=== PATIENT | female | born 1985 | race Caucasian/White ===

== ENCOUNTER 2018-08-27 04:34 | Emergency (ER) | payer MEDICAID, OTHER ==
[2018-08-27] MEDS ORDERED: LORazepam 1 MG TAB PO STA ×3 (05:02→14:28)
--- NOTE | 2018-08-27 05:09 | ED ---
Psych HPI - General Source: police, EMS <Brittani John - Last Filed: 08/27/18 07:21> <Palmer Boone - Last Filed: 08/27/18 15:14> - General Chief Complaint: Psychiatric Symptoms Stated Complaint: Mental Health Time Seen by Provider: 08/27/18 04:39 - History of Present Illness Initial Comments: Kitty is a 33-year-old female is brought to the ED by police evaluation of manic behavior. Police report that Kitty called them and upon their arrival he was pacing around hyperventilating stating that she cut it take this. He reports she would then become calm and cooperative but again become upset. Upon my evaluation the patient repeatedly states I just can't do this. She is agitated rocking back and forth in the bed and hyperventilating. She states she has not been compliant with any of her home medications. (Brittani John) - Related Data Home Medications Medication Instructions Recorded Confirmed Dextroamphetamine/Amphetamine 20 mg PO DAILY 08/27/18 08/27/18 [Adderall] Escitalopram [Lexapro] 20 mg PO DAILY 08/27/18 08/27/18 QUEtiapine [SEROquel] 100 mg PO HS 08/27/18 08/27/18 Zolpidem [Ambien] 10 mg PO HS PRN 08/27/18 08/27/18 clonazePAM [KlonoPIN] 0.5 - 1 mg PO QID PRN 08/27/18 08/27/18 levETIRAcetam [Keppra] 250 mg PO DAILY 08/27/18 08/27/18 levETIRAcetam [Keppra] 500 mg PO HS 08/27/18 08/27/18 Allergies Allergy/AdvReac Type Severity Reaction Status Date / Time No Known Allergies Allergy Verified 08/27/18 04:54 Review of Systems ROS Other: All systems not noted in ROS Statement are negative. Limitations: ROS unobtainable due to patients medical condition <Brittani John - Last Filed: 08/27/18 07:21> ROS Other: All systems not noted in ROS Statement are negative. <Palmer Boone - Last Filed: 08/27/18 15:14> ROS Statement: Those systems with pertinent positive or pertinent negative responses have been documented in the HPI. Past Medical History Past Medical History: Seizure Disorder Additional Past Medical History / Comment(s): anxiety last seizure 4 years ago osteomyelitis right knee as a child History of Any Multi-Drug Resistant Organisms: None Reported Past Surgical History: No Surgical Hx Reported Past Anesthesia/Blood Transfusion Reactions: No Reported Reaction Past Psychological History: Anxiety, Depression Smoking Status: Never smoker Past Alcohol Use History: None Reported Past Drug Use History: None Reported, Prescription Drug Abuse - Past Family History Father Additional Family Medical History / Comment(s): Father is in his 40s with no major medical problems. Mother Family Medical History: Hypertension Additional Family Medical History / Comment(s): Mother is in her 40s with history of ALLERGIES, anxiety, hypertension Sister(s) Additional Family Medical History / Comment(s): She has one sister with no major medical problems. She does not have any brothers. She does not have any children. <Brittani John - Last Filed: 08/27/18 07:21> General Exam Limitations: no limitations <Brittani John - Last Filed: 08/27/18 07:21> <Palmer Boone - Last Filed: 08/27/18 15:14> - General Exam Comments Initial Comments: Physical Exam GENERAL: Unkempt appearance, agitated, rocking around on the bed, hyperventilating. HENT: Normocephalic, Atraumatic. EYES: Pupils dilated 5 mm bilaterally PULMONARY: Tachypneic, no wheezing CARDIOVASCULAR: There is a regular rate and rhythm without any murmurs gallops or rubs. ABDOMEN: Soft and nontender with normal bowel sounds. SKIN: Skin is clear with no lesions or rashes and otherwise unremarkable. : Deferred NEUROLOGIC: Alert and oriented to person, place and location, uncertain of date, agitated MUSCULOSKELETAL: Normal extremities with adequate strength and full range of motion. No lower extremity swelling or edema. No calf tenderness. PSYCHIATRIC: Agitated, anxious, not able to communicate effectively appears manic Limitations: no limitations (Brittani John) Course <Brittani John - Last Filed: 08/27/18 07:21> <Palmer Boone - Last Filed: 08/27/18 15:14> Vital Signs 08/27/18 04:44 Temperature 98.5 F Pulse Rate 99 Respiratory 20 Rate Blood Pressure 137/97 O2 Sat by Pulse 95 Oximetry - Reevaluation(s) Reevaluation #1: 08/27/18 15:14 A patient was determined to be sober was evaluated by psychiatric service he currently is not a risk to herself or anyone else he'll be discharged for outpatient referral. (Palmer Boone) Medical Decision Making - Lab Data Result diagrams: 08/27/18 05:12 08/27/18 05:12 <Brittani John - Last Filed: 08/27/18 07:21> - Lab Data Result diagrams: 08/27/18 05:12 08/27/18 05:12 <Palmer Boone - Last Filed: 08/27/18 15:14> - Medical Decision Making She was seen and evaluated upon arrival. Patient presenting with agitation and kristin history of psychiatric illness currently noncompliant with her medications Labs were ordered 2mg PO Ativan ordered Labs elevated alcohol level, patient will be sober around 1 PM, patient care is signed out to Dr. Boone who will follow up on EPS recommendations (Brittani John) - Lab Data Lab Results 08/27/18 08/27/18 08/27/18 Range/Units 05:12 05:12 05:47 WBC 6.5 (3.8-10.6) k/uL RBC 5.05 (3.80-5.40) m/uL Hgb 16.5 H (11.4-16.0) gm/dL Hct 47.6 H (34.0-46.0) % MCV 94.4 (80.0-100.0) fL MCH 32.7 (25.0-35.0) pg MCHC 34.7 (31.0-37.0) g/dL RDW 13.1 (11.5-15.5) % Plt Count 249 (150-450) k/uL Neutrophils % 56 % Lymphocytes % 35 % Monocytes % 4 % Eosinophils % 2 % Basophils % 1 % Neutrophils # 3.6 (1.3-7.7) k/uL Lymphocytes # 2.2 (1.0-4.8) k/uL Monocytes # 0.3 (0-1.0) k/uL Eosinophils # 0.1 (0-0.7) k/uL Basophils # 0.0 (0-0.2) k/uL Sodium 144 (137-145) mmol/L Potassium 4.3 (3.5-5.1) mmol/L Chloride 108 H (98-107) mmol/L Carbon Dioxide 23 (22-30) mmol/L Anion Gap 13 mmol/L BUN 10 (7-17) mg/dL Creatinine 0.79 (0.52-1.04) mg/dL Est GFR (CKD-EPI)AfAm >90 (>60 ml/min/1.73 sqM) Est GFR (CKD-EPI)NonAf >90 (>60 ml/min/1.73 sqM) Glucose 109 H (74-99) mg/dL Calcium 10.1 (8.4-10.2) mg/dL Total Bilirubin 0.6 (0.2-1.3) mg/dL AST 36 (14-36) U/L ALT 63 H (9-52) U/L Alkaline Phosphatase 31 L (38-126) U/L Total Protein 8.2 (6.3-8.2) g/dL Albumin 4.9 (3.5-5.0) g/dL Urine Color Light Yellow Urine Appearance Cloudy H (Clear) Urine pH 7.0 (5.0-8.0) Ur Specific [place] 1.009 (1.001-1.035) Urine Protein Negative (Negative) Urine Glucose (UA) Negative (Negative) Urine Ketones Negative (Negative) Urine Blood Negative (Negative) Urine Nitrite Negative (Negative) Urine Bilirubin Negative (Negative) Urine Urobilinogen <2.0 (<2.0) mg/dL Ur Leukocyte Esterase Small H (Negative) Urine RBC 2 (0-5) /hpf Urine WBC 2 (0-5) /hpf Ur Squamous Epith Cells 6 H (0-4) /hpf Urine Bacteria Rare H (None) /hpf Urine Mucus Rare H (None) /hpf Urine HCG, Qual (Not Detectd) Salicylates <1.0 mg/dL Urine Opiates Screen Not Detected (NotDetected) Ur Oxycodone Screen Not Detected (NotDetected) Urine Methadone Screen Not Detected (NotDetected) Ur Propoxyphene Screen Not Detected (NotDetected) Acetaminophen <10.0 ug/mL Ur Barbiturates Screen Not Detected (NotDetected) U Tricyclic Antidepress Not Detected (NotDetected) Ur Phencyclidine Scrn Not Detected (NotDetected) Ur Amphetamines Screen Not Detected (NotDetected) U Methamphetamines Scrn Not Detected (NotDetected) U Benzodiazepines Scrn Not Detected (NotDetected) Urine Cocaine Screen Not Detected (NotDetected) U Marijuana (THC) Screen Not Detected (NotDetected) Serum Alcohol 240 H* mg/dL 08/27/18 Range/Units 05:47 WBC (3.8-10.6) k/uL RBC (3.80-5.40) m/uL Hgb (11.4-16.0) gm/dL Hct (34.0-46.0) % MCV (80.0-100.0) fL MCH (25.0-35.0) pg MCHC (31.0-37.0) g/dL RDW (11.5-15.5) % Plt Count (150-450) k/uL Neutrophils % % Lymphocytes % % Monocytes % % Eosinophils % % Basophils % % Neutrophils # (1.3-7.7) k/uL Lymphocytes # (1.0-4.8) k/uL Monocytes # (0-1.0) k/uL Eosinophils # (0-0.7) k/uL Basophils # (0-0.2) k/uL Sodium (137-145) mmol/L Potassium (3.5-5.1) mmol/L Chloride (98-107) mmol/L Carbon Dioxide (22-30) mmol/L Anion Gap mmol/L BUN (7-17) mg/dL Creatinine (0.52-1.04) mg/dL Est GFR (CKD-EPI)AfAm (>60 ml/min/1.73 sqM) Est GFR (CKD-EPI)NonAf (>60 ml/min/1.73 sqM) Glucose (74-99) mg/dL Calcium (8.4-10.2) mg/dL Total Bilirubin (0.2-1.3) mg/dL AST (14-36) U/L ALT (9-52) U/L Alkaline Phosphatase (38-126) U/L Total Protein (6.3-8.2) g/dL Albumin (3.5-5.0) g/dL Urine Color Urine Appearance (Clear) Urine pH (5.0-8.0) Ur Specific [place] (1.001-1.035) Urine Protein (Negative) Urine Glucose (UA) (Negative) Urine Ketones (Negative) Urine Blood (Negative) Urine Nitrite (Negative) Urine Bilirubin (Negative) Urine Urobilinogen (<2.0) mg/dL Ur Leukocyte Esterase (Negative) Urine RBC (0-5) /hpf Urine WBC (0-5) /hpf Ur Squamous Epith Cells (0-4) /hpf Urine Bacteria (None) /hpf Urine Mucus (None) /hpf Urine HCG, Qual Not Detected (Not Detectd) Salicylates mg/dL Urine Opiates Screen (NotDetected) Ur Oxycodone Screen (NotDetected) Urine Methadone Screen (NotDetected) Ur Propoxyphene Screen (NotDetected) Acetaminophen ug/mL Ur Barbiturates Screen (NotDetected) U Tricyclic Antidepress (NotDetected) Ur Phencyclidine Scrn (NotDetected) Ur Amphetamines Screen (NotDetected) U Methamphetamines Scrn (NotDetected) U Benzodiazepines Scrn (NotDetected) Urine Cocaine Screen (NotDetected) U Marijuana (THC) Screen (NotDetected) Serum Alcohol mg/dL Disposition <Brittani John - Last Filed: 08/27/18 07:21> Is patient prescribed a controlled substance at d/c from ED?: No <Palmer Boone - Last Filed: 08/27/18 15:14> Clinical Impression: Alcohol intoxication, Acute anxiety Disposition: HOME SELF-CARE Condition: Good Instructions: Alcohol Intoxication (ED), Anxiety (ED) Referrals: Gurwinder Rivera MD [Primary Care Provider] - 1-2 days
[2018-08-27 05:24] LABS: Basophils % (A) 1 %; Eosinophils # (A) 0.1 k/uL (0-0.7); Eosinophils % (A) 2 %; HCT 47.6 % (34.0-46.0); HGB 16.5 gm/dL (11.4-16.0); Lymphocytes # (A) 2.2 k/uL (1.0-4.8); Lymphocytes % (A) 35 %; MCH 32.7 pg (25.0-35.0); MCHC 34.7 g/dL (31.0-37.0); MCV 94.4 fL (80.0-100.0); Monocytes # (A) 0.3 k/uL (0-1.0); Monocytes % (A) 4 %; Neutrophils # (A) 3.6 k/uL (1.3-7.7); Neutrophils % (A) 56 %; Platelet Count 249 k/uL (150-450); RBC 5.05 m/uL (3.80-5.40); RDW 13.1 % (11.5-15.5); WBC 6.5 k/uL (3.8-10.6)
[2018-08-27 05:44] LABS: ALT 63 U/L (9-52); AST 36 U/L (14-36); Acetaminophen <10.0 ug/mL; Albumin 4.9 g/dL (3.5-5.0); Alkaline Phosphatase 31 U/L (38-126); Anion Gap 13 mmol/L; Blood Urea Nitrogen 10 mg/dL (7-17); Calcium 10.1 mg/dL (8.4-10.2); Carbon Dioxide 23 mmol/L (22-30); Chloride 108 mmol/L (98-107); Glucose 109 mg/dL (74-99); Potassium 4.3 mmol/L (3.5-5.1); Salicylate <1.0 mg/dL; Sodium 144 mmol/L (137-145); Total Bilirubin 0.6 mg/dL (0.2-1.3); Total Protein 8.2 g/dL (6.3-8.2)
[2018-08-27 05:57] LABS: Alcohol 240 mg/dL
[2018-08-27 06:35] LABS: Appearance,Urine Cloudy (Clear); Bacteria,Urine Rare /hpf; Bilirubin,Urine Negative (Negative); Blood,Urine Negative (Negative); Color,Urine Light Yellow; Glucose,Urine (UA) Negative (Negative); Ketones,Urine Negative (Negative); Leukocyte Esterase,Urine Small (Negative); Mucus,Urine Rare /hpf; Nitrite,Urine Negative (Negative); Protein,Urine Negative (Negative); RBC,Urine 2 /hpf (0-5); Specific Gravity,Urine 1.009 (1.001-1.035); Squamous Epithelial Cell,Urine 6 /hpf (0-4); Urobilinogen,Urine <2.0 mg/dL (<2.0); WBC,Urine 2 /hpf (0-5)
[2018-08-27 06:44] LABS: Amphetamine Screen,Urine Not Detected (NotDetected); Barbiturate Screen,Urine Not Detected (NotDetected); Benzodiazepines Screen,Urine Not Detected (NotDetected); Cocaine Screen,Urine Not Detected (NotDetected); Methadone Screen, Urine Not Detected (NotDetected); Opiate Screen,Urine Not Detected (NotDetected); Oxycodone Screen, Urine Not Detected (NotDetected); Phencyclidine Screen,Urine Not Detected (NotDetected); Tricyclic Antidepressant,Urine Not Detected (NotDetected); Urn Cannabinoid Scrn Not Detected (NotDetected)
[2018-08-27] MEDS ORDERED: clonazePAM 1 MG TAB PO STA (08:30)
[2018-08-27 15:51] VITALS: BP 128/92; PULSE 95; RESP 18; TEMP 98.1
== END 2018-08-27 15:32 | disposition home or self-care (01) ==
LOC: EC 04:34
DX: F41.9 Anxiety disorder, unspecified (principal); F10.129 Alcohol abuse with intoxication, unspecified; H57.04 Mydriasis; R45.1 Restlessness and agitation; Z91.19 Patient's noncompliance with other medical treatment and regimen; G40.909 Epilepsy, unspecified, not intractable, without status epilepticus; F32.9 Major depressive disorder, single episode, unspecified; Z79.899 Other long term (current) drug therapy
CPT/HCPCS: 82075; 36415; 80053; 85025; 81001; 81025; 80306; 83520 ×2; 99285; G0480; 80320

== ENCOUNTER 2019-05-10 00:08 | Emergency (ER) | payer OTHER ==
[2019-05-10] MEDS ORDERED: SODIUM CHLORIDE 0.9% 1,000 ML IV ONE (01:12)
[2019-05-10] MEDS ORDERED: LORazepam 2 MG/ML INJ IV STA (01:12)
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
[2019-05-10] MEDS ORDERED: chlordiazePOXIDE 25 MG CAP PO STA (05:22)
[2019-05-10 08:59] VITALS: BP 117/78; PULSE 103; RESP 18; TEMP 98.5
[2019-05-10] MEDS ORDERED: LORazepam 1 MG TAB PO STA (09:50)
== END 2019-05-10 10:21 | disposition home or self-care (01) ==
LOC: EC 00:08
DX: F10.129 Alcohol abuse with intoxication, unspecified (principal); T76.21XA Adult sexual abuse, suspected, initial encounter; S70.11XA Contusion of right thigh, initial encounter; S70.12XA Contusion of left thigh, initial encounter; F41.9 Anxiety disorder, unspecified; G40.909 Epilepsy, unspecified, not intractable, without status epilepticus; F32.9 Major depressive disorder, single episode, unspecified; Z79.899 Other long term (current) drug therapy; Y90.7 Blood alcohol level of 200-239 mg/100 ml; X58.XXXA Exposure to other specified factors, initial encounter
CPT/HCPCS: 99285; 96374; 96361 ×6; 36415; G0480; J2060; 80320

== ENCOUNTER 2023-08-04 09:39 | Inpatient (IN) | payer MEDICAID, OTHER ==
--- NOTE | 2023-08-04 10:00 | ED ---
General Adult HPI - General Chief complaint: Psychiatric Symptoms Stated complaint: Mental Health Time Seen by Provider: 08/04/23 09:44 Source: patient, EMS, RN notes reviewed Mode of arrival: EMS Limitations: no limitations - History of Present Illness Initial comments: Patient is a pleasant 38-year-old female presenting to the emergency Department by EPS with reported petition for mental health evaluation. Patient admits to feeling paranoid and having thoughts that multiple people are trying to kill her, especially her neighbors. Patient admits to not sleeping the last for 5 days. Patient not eating well. Patient admits to having racing thoughts. Patient states she is not taking her medications for the past few days. Patient does occasionally drink alcohol. - Related Data Home Medications Medication Instructions Recorded Confirmed clonazePAM [KlonoPIN] 1 mg PO BID 08/27/18 08/04/23 Dextroamphetamine/Amphetamine 15 mg PO BID 05/10/19 08/04/23 [Adderall] Cyclobenzaprine [Flexeril] 5 mg PO BID PRN 08/04/23 08/04/23 FLUoxetine HCL [PROzac] 40 mg PO HS 08/04/23 08/04/23 Medroxyprogesterone Acetate 150 mg IM Q84D 08/04/23 08/04/23 [Depo-Provera] Naltrexone HCl [Revia] 50 mg PO DAILY 08/04/23 08/04/23 Prazosin [Minipress] 5 mg PO HS 08/04/23 08/04/23 Topiramate [Topamax] 25 mg PO DAILY 08/04/23 08/04/23 lamoTRIgine [LaMICtal] 150 mg PO BID 08/04/23 08/04/23 Allergies Allergy/AdvReac Type Severity Reaction Status Date / Time No Known Allergies Allergy Verified 08/04/23 14:02 Review of Systems ROS Statement: Those systems with pertinent positive or pertinent negative responses have been documented in the HPI. ROS Other: All systems not noted in ROS Statement are negative. Constitutional: Denies: fever Eyes: Denies: eye pain ENT: Denies: ear pain Respiratory: Denies: cough Cardiovascular: Denies: chest pain Endocrine: Denies: fatigue Gastrointestinal: Denies: abdominal pain Genitourinary: Denies: dysuria Musculoskeletal: Denies: back pain Skin: Denies: rash Psychiatric: Reports: as per HPI, anxiety Past Medical History Past Medical History: Seizure Disorder Additional Past Medical History / Comment(s): anxiety last seizure 4 years ago osteomyelitis right knee as a child History of Any Multi-Drug Resistant Organisms: None Reported Past Surgical History: No Surgical Hx Reported Past Anesthesia/Blood Transfusion Reactions: No Reported Reaction Past Psychological History: Anxiety, Depression Past Alcohol Use History: None Reported Past Drug Use History: None Reported, Prescription Drug Abuse - Past Family History Father Additional Family Medical History / Comment(s): Father is in his 40s with no major medical problems. Mother Family Medical History: Hypertension Additional Family Medical History / Comment(s): Mother is in her 40s with histor y of ALLERGIES, anxiety, hypertension Sister(s) Additional Family Medical History / Comment(s): She has one sister with no major medical problems. She does not have any brothers. She does not have any children. General Exam Limitations: no limitations General appearance: alert, in no apparent distress Head exam: Present: normocephalic Eye exam: Present: normal appearance, PERRL, EOMI ENT exam: Present: normal oropharynx Neck exam: Present: normal inspection. Absent: tenderness Respiratory exam: Present: normal lung sounds bilaterally Cardiovascular Exam: Present: tachycardia GI/Abdominal exam: Present: soft. Absent: tenderness Extremities exam: Present: normal inspection Neurological exam: Present: alert Psychiatric exam: Present: anxious Expanded Focused psych exam: Present: paranoid, flight of ideas Skin exam: Present: abrasion (Mild fresh abrasions left volar forearm) Course Vital Signs 08/04/23 09:45 Temperature 98.7 F Pulse Rate 110 H Respiratory 18 Rate Blood Pressure 146/85 O2 Sat by Pulse 98 Oximetry Medical Decision Making - Medical Decision Making Was pt. sent in by a medical professional or institution (, PA, BANQU[employer] STEWARDESS, urgent care, hospital, or long term...) When possible be specific @ -Patient was brought in with petition Did you speak to anyone other than the patient for history (EMS, parent, family, police, friend...)? What history was obtained from this source @ -No Did you review nursing and triage notes (agree or disagree)? Why? @ -I reviewed and agree with nursing and triage notes Were old charts reviewed (outside hosp., previous admission, EMS record, old EKG, old radiological studies, urgent care reports/EKG's, long term records)? Report findings @ -No old charts were reviewed Differential Diagnosis (chest pain, altered mental status, abdominal pain women, abdominal pain men, vaginal bleeding, weakness, fever, dyspnea, syncope, headache, dizziness, GI bleed, back pain, seizure, CVA, palpatations, mental health, musculoskeletal)? @ -Differential Mental Health Depression, anxiety, bipolar, psychosis, schizophrenia, borderline personality, situational depression, adjustment disorder, behavioral disorder, brain tumor, malingering, substance abuse, encephalopathy, medication reaction, dementia, hypothyroidism, degenerative neurologic disorder, lupus.... This is not meant to be all-inclusive list EKG interpreted by me (3pts min.). @ -As above X-rays interpreted by me (1pt min.). @ -None done CT interpreted by me (1pt min.). @ -None done U/S interpreted by me (1pt. min.). @ -None done What testing was considered but not performed or refused? (CT, X-rays, U/S, labs)? Why? @ -None What meds were considered but not given or refused? Why? @ -None Did you discuss the management of the patient with other professionals (professionals i.e. , PA, B[employer] STEWARDESS, lab, RT, psych nurse, director social service, die baker, teacher, traffic officer, transplant case manager)? Give summary @ -Case was discussed with psychiatric nurse Julianne with plans for admission or transfer Was smoking cessation discussed for >3mins.? @ -No Was critical care preformed (if so, how long)? @ -No Were there social determinants of health that impacted care today? How? (Homelessness, low income, unemployed, alcoholism, drug addiction, transportation, low edu. Level, literacy, decrease access to med. care, [place] [facility], rehab)? @ -No Was there de-escalation of care discussed even if they declined (Discuss DNR or withdrawal of care, Hospice)? DNR status @ -No What co-morbidities impacted this encounter? (DM, HTN, Smoking, COPD, CAD, Cancer, CVA, ARF, Chemo, Hep., AIDS, mental health diagnosis, sleep apnea, morbid obesity)? @ -None Was patient admitted / discharged? Hospital course, mention meds given and route, prescriptions, significant lab abnormalities, going to OR and other pertinent info. @ -Patient will be admitted/transferred for psychiatric care. Undiagnosed new problem with uncertain prognosis? @ -No Drug Therapy requiring intensive monitoring for toxicity (Heparin, Nitro, Insulin, Cardizem)? @ -No Were any procedures done? @ -No Diagnosis/symptom? @ -Acute psychosis Acute, or Chronic, or Acute on Chronic? @ -Acute Uncomplicated (without systemic symptoms) or Complicated (systemic symptoms)? @ -default Side effects of treatment? @ -No Exacerbation, Progression, or Severe Exacerbation? @ -No Poses a threat to life or bodily function? How? (Chest pain, [place], [place], pneumonia, PE, COPD, DKA, ARF, appy, cholecystitis, CVA, Diverticulitis, Homicidal, Suicidal, threat to staff... and all critical care pts) @ -No - Lab Data Lab Results 08/04/23 Range/Units 12:02 Urine Opiates Screen Not Detected (NotDetected) Ur Oxycodone Screen Not Detected (NotDetected) Urine Methadone Screen Not Detected (NotDetected) Ur Propoxyphene Screen Not Detected (NotDetected) Ur Barbiturates Screen Not Detected (NotDetected) U Tricyclic Antidepress Not Detected (NotDetected) Ur Phencyclidine Scrn Not Detected (NotDetected) Ur Amphetamines Screen Detected H (NotDetected) U Methamphetamines Scrn Not Detected (NotDetected) U Benzodiazepines Scrn Not Detected (NotDetected) Urine Cocaine Screen Not Detected (NotDetected) U Marijuana (THC) Screen Not Detected (NotDetected) Disposition Clinical Impression: Psychosis Disposition: TRANSFER TO PSYCH HOSP/UNIT Is patient prescribed a controlled substance at d/c from ED?: No Referrals: Ron Murillo DO [Primary Care Provider] - 1-2 days Time of Disposition: 15:01
[2023-08-04 12:33] LABS: Cocaine Screen,Urine Not Detected (NotDetected); Opiate Screen,Urine Not Detected (NotDetected); Phencyclidine Screen,Urine Not Detected (NotDetected); Urn Cannabinoid Scrn Not Detected (NotDetected)
[2023-08-04 12:34] LABS: Amphetamine Screen,Urine Detected (NotDetected); Barbiturate Screen,Urine Not Detected (NotDetected); Benzodiazepines Screen,Urine Not Detected (NotDetected); Methadone Screen, Urine Not Detected (NotDetected); Oxycodone Screen, Urine Not Detected (NotDetected); Tricyclic Antidepressant,Urine Not Detected (NotDetected)
[2023-08-04 16:24] LABS: HCT 41.6 % (34.0-46.0); HGB 14.7 gm/dL (11.4-16.0); MCH 34.5 pg (25.0-35.0); MCHC 35.2 g/dL (31.0-37.0); Mean Platelet Volume 7.8; Platelet Count 227 k/uL (150-450); RBC 4.25 m/uL (3.80-5.40); RDW 13.4 % (11.5-15.5); WBC 6.6 k/uL (3.8-10.6)
[2023-08-04 16:44] LABS: ALT 47 U/L (4-34); AST 39 U/L (14-36); African American GFR (CKD) 62 (>60 ml/min/1.73 sqM); Albumin 4.5 g/dL (3.5-5.0); Alkaline Phosphatase 39 U/L (38-126); Anion Gap 15 mmol/L; Blood Urea Nitrogen 13 mg/dL (7-17); Calcium 10.1 mg/dL (8.4-10.2); Carbon Dioxide 21 mmol/L (22-30); Chloride 107 mmol/L (98-107); Glucose 111 mg/dL (74-99); Non-African American GFR(CKD) 54 (>60 ml/min/1.73 sqM); Sodium 143 mmol/L (137-145); Total Protein 7.1 g/dL (6.3-8.2)
[2023-08-04] MEDS ORDERED: POTASSIUM CHLORIDE ER 20 MEQ TAB.ER PO STA (17:10)
[2023-08-04] MEDS ORDERED: MAGNESIUM HYDROXIDE 2,400 MG/30 ML CUP PO PRN (17:37)
[2023-08-04] MEDS ORDERED: NON FORMULARY DRUG (Medroxyprogesterone Acetate [Depo-Provera] 150 MG/ML Each) IM SCH (17:45)
[2023-08-04] MEDS: LORazepam 1 MG TAB PO PRN (18:20)
[2023-08-04] MEDS: haloperidoL 5 MG TAB PO PRN (18:20)
[2023-08-04] MEDS: HALOPERIDOL LACTATE 5 MG/ML 1 ML VIAL IM PRN (21:33)
[2023-08-04] MEDS: LORazepam 2 MG/ML INJ IM PRN (21:34)
[2023-08-04] MEDS: PRAZOSIN 1 MG CAP PO SCH (21:34)
[2023-08-04] MEDS: clonazePAM 1 MG TAB PO SCH (21:47)
--- NOTE | 2023-08-05 00:17 | P.PN ---
Progress Note - Text Progress Note Date: 08/05/23 Attempted to the patient at 08/04 on the mental health unit. During the interview, the patient suddenly stated that she does not wish to answer any questions or be examined.
[2023-08-05 02:20] LABS: Appearance,Urine Clear (Clear); Bilirubin,Urine Negative (Negative); Blood,Urine Negative (Negative); Color,Urine Colorless; Glucose,Urine (UA) Negative (Negative); Ketones,Urine Trace (Negative); Leukocyte Esterase,Urine Negative (Negative); Nitrite,Urine Negative (Negative); PH, Urine 6.5 (5.0-8.0); Protein,Urine Negative (Negative); Specific Gravity,Urine 1.008 (1.001-1.035); Urobilinogen,Urine <2.0 mg/dL (<2.0)
--- NOTE | 2023-08-05 09:52 | P.HP ---
Psychiatric H&P - . H&P Date: 08/05/23 History & Physical: Allergies Allergy/AdvReac Type Severity Reaction Status Date / Time No Known Allergies Allergy Verified 08/04/23 14:02 Vital Signs Temp 96.9 F L 08/04/23 17:50 Pulse 122 H 08/04/23 17:50 Resp 20 08/04/23 17:50 BP 164/87 08/04/23 17:50 Pulse Ox 97 08/04/23 17:50 FiO2 Intake & Output 08/04/23 08/04/23 08/05/23 06:59 18:59 06:59 Weight 81.647 kg Laboratory Last Values WBC 6.6 k/uL (3.8-10.6) 08/04/23 15:51 RBC 4.25 m/uL (3.80-5.40) 08/04/23 15:51 Hgb 14.7 gm/dL (11.4-16.0) 08/04/23 15:51 Hct 41.6 % (34.0-46.0) 08/04/23 15:51 MCV 98.0 fL (80.0-100.0) 08/04/23 15:51 MCH 34.5 pg (25.0-35.0) 08/04/23 15:51 MCHC 35.2 g/dL (31.0-37.0) 08/04/23 15:51 RDW 13.4 % (11.5-15.5) 08/04/23 15:51 Plt Count 227 k/uL (150-450) 08/04/23 15:51 MPV 7.8 08/04/23 15:51 Sodium 143 mmol/L (137-145) 08/04/23 15:51 Potassium 3.0 mmol/L (3.5-5.1) L 08/04/23 15:51 Chloride 107 mmol/L (98-107) 08/04/23 15:51 Carbon Dioxide 21 mmol/L (22-30) L 08/04/23 15:51 Anion Gap 15 mmol/L 08/04/23 15:51 BUN 13 mg/dL (7-17) 08/04/23 15:51 Creatinine 1.26 mg/dL (0.52-1.04) H 08/04/23 15:51 Est GFR (CKD-EPI)AfAm 62 (>60 ml/min/1.73 sqM) 08/04/23 15:51 Est GFR (CKD-EPI)NonAf 54 (>60 ml/min/1.73 sqM) 08/04/23 15:51 Glucose 111 mg/dL (74-99) H 08/04/23 15:51 Calcium 10.1 mg/dL (8.4-10.2) 08/04/23 15:51 Total Bilirubin 1.0 mg/dL (0.2-1.3) 08/04/23 15:51 AST 39 U/L (14-36) H 08/04/23 15:51 ALT 47 U/L (4-34) H 08/04/23 15:51 Alkaline Phosphatase 39 U/L (38-126) 08/04/23 15:51 Total Protein 7.1 g/dL (6.3-8.2) 08/04/23 15:51 Albumin 4.5 g/dL (3.5-5.0) 08/04/23 15:51 TSH 1.060 mIU/L (0.465-4.680) 08/04/23 15:51 Urine Color Colorless 08/04/23 12:02 Urine Appearance Clear (Clear) 08/04/23 12:02 Urine pH 6.5 (5.0-8.0) 08/04/23 12:02 Ur Specific Points 1.008 (1.001-1.035) 08/04/23 12:02 Urine Protein Negative (Negative) 08/04/23 12:02 Urine Glucose (UA) Negative (Negative) 08/04/23 12:02 Urine Ketones Trace (Negative) H 08/04/23 12:02 Urine Blood Negative (Negative) 08/04/23 12:02 Urine Nitrite Negative (Negative) 08/04/23 12:02 Urine Bilirubin Negative (Negative) 08/04/23 12:02 Urine Urobilinogen <2.0 mg/dL (<2.0) 08/04/23 12:02 Ur Leukocyte Esterase Negative (Negative) 08/04/23 12:02 Urine HCG, Qual Not Detected (Not Detectd) 08/04/23 12:02 Urine Opiates Screen Not Detected (NotDetected) 08/04/23 12:02 Ur Oxycodone Screen Not Detected (NotDetected) 08/04/23 12:02 Urine Methadone Screen Not Detected (NotDetected) 08/04/23 12:02 Ur Propoxyphene Screen Not Detected (NotDetected) 08/04/23 12:02 Ur Barbiturates Screen Not Detected (NotDetected) 08/04/23 12:02 U Tricyclic Antidepress Not Detected (NotDetected) 08/04/23 12:02 Ur Phencyclidine Scrn Not Detected (NotDetected) 08/04/23 12:02 Ur Amphetamines Screen Detected (NotDetected) H 08/04/23 12:02 U Methamphetamines Scrn Not Detected (NotDetected) 08/04/23 12:02 U Benzodiazepines Scrn Not Detected (NotDetected) 08/04/23 12:02 Urine Cocaine Screen Not Detected (NotDetected) 08/04/23 12:02 U Marijuana (THC) Screen Not Detected (NotDetected) 08/04/23 12:02 Coronavirus (PCR) Not Detected (Not Detectd) 08/04/23 15:51 08/05/23 06:59 Patient is a pleasant 38-year-old female presenting to the emergency Department by EPS with reported petition for mental health evaluation. Patient admits to feeling paranoid and having thoughts that multiple people are trying to kill her, especially her neighbors. Patient admits to not sleeping the last 4 or 5 days. Patient not eating well. Patient admits to having racing thoughts. Patient states she is not taking her medications for the past few days. Patient does occasionally drink alcohol. - Related Data Home Medications Medication Instructions Recorded Confirmed clonazePAM [KlonoPIN] 1 mg PO BID 08/27/18 08/04/23 Dextroamphetamine/Amphetamine 15 mg PO BID 05/10/19 08/04/23 [Adderall] Cyclobenzaprine [Flexeril] 5 mg PO BID PRN 08/04/23 08/04/23 FLUoxetine HCL [PROzac] 40 mg PO HS 08/04/23 08/04/23 Medroxyprogesterone Acetate 150 mg IM Q84D 08/04/23 08/04/23 [Depo-Provera] Naltrexone HCl [Revia] 50 mg PO DAILY 08/04/23 08/04/23 Prazosin [Minipress] 5 mg PO HS 08/04/23 08/04/23 Topiramate [Topamax] 25 mg PO DAILY 08/04/23 08/04/23 lamoTRIgine [LaMICtal] 150 mg PO BID 08/04/23 08/04/23 Allergies Allergy/AdvReac Type Severity Reaction Status Date / Time No Known Allergies Allergy Verified 08/04/23 14:02 On admission to the emergency room she was noted to have: ROS Other: All systems not noted in ROS Statement are negative. Constitutional: Denies: fever Eyes: Denies: eye pain ENT: Denies: ear pain Respiratory: Denies: cough Cardiovascular: Denies: chest pain Endocrine: Denies: fatigue Gastrointestinal: Denies: abdominal pain Genitourinary: Denies: dysuria Musculoskeletal: Denies: back pain Skin: Denies: rash Psychiatric: Reports: as per HPI, anxiety Past Medical History Past Medical History: Seizure Disorder, the patient is on Topamax at 25 mg a day as well as Lamictal 150 twice a day. Restarting the Lamictal with her having been off could be dangerous I'll have to establish exactly how long she has been off of it, last seizure 4 years ago Additional Past Medical History / Comment(s): anxiety osteomyelitis right knee as a child History of Any Multi-Drug Resistant Organisms: None Reported Past Surgical History: No Surgical Hx Reported Past Anesthesia/Blood Transfusion Reactions: No Reported Reaction Past Psychological History: Anxiety, Depression Past Alcohol Use History: None Reported Past Drug Use History: None Reported, Prescription Drug Abuse - Past Family History Father Additional Family Medical History / Comment(s): Father is with no major medical problems. Mother Family Medical History: Hypertension Additional Family Medical History / Comment(s): Mother with history of ALLERGIES, anxiety, hypertension Sister(s) Additional Family Medical History / Comment(s): She has one sister with no major medical problems. She does not have any brothers. She does not have any children. General Exam Limitations: no limitations General appearance: alert, in no apparent distress Head exam: Present: normocephalic Eye exam: Present: normal appearance, PERRL, EOMI ENT exam: Present: normal oropharynx Neck exam: Present: normal inspection. Absent: tenderness Respiratory exam: Present: normal lung sounds bilaterally Cardiovascular Exam: Present: tachycardia GI/Abdominal exam: Present: soft. Absent: tenderness Extremities exam: Present: normal inspection Neurological exam: Present: alert Psychiatric exam: Present: anxious Expanded Focused psych exam: Present: paranoid, flight of ideas Skin exam: Present: abrasion (Mild fresh abrasions left volar forearm) On examination of the unit she refused to talk to staff with clear signs of paranoia. Later at 7 PM the patient was given Ativan 1mg PO and Haldol 5mg PO at admission, the patient was very paranoid, afraid, she thought people were going to come and kill her, she thought a peer in the [place] was listening to our admission assessment, she is very paranoid, shaky, she admits to drinking daily. LEMUELWA was a 9. Meds were given to help her she is scared and afraid people will come into her room and hurt her. She was reassured of safety. The nursing staff on admission noted the patient be bizarre guarded and withdrawn, her self-care is poor she was disheveled easily agitated and irritable suspicious believing that other people were trying to hurt her seem to be responding to internal stimuli restlessness trouble making simple decisions apparently hearing voices she did not who she was and where she will trouble staying on topic no insight or judgment she was alert and denied any suicidal or homicidal To herself did not relate to others her of okay so. I saw the patient in her room she has slept until about 10:00. The room is dark and she preferred it that way. I asked if she be willing to come down office and talk pointing out that their condition was uncomfortable to sit on. She refused to come. She acknowledged that she had a history of seizures and talked about not knowing how long it has been since she had her last Lamictal. (That makes it dangerous to restart) however she was using Lamictal for her seizures she had 150 twice a day and said it was not for depression. I asked her what else she had taken that helped with seizures that she tolerated that might be something we could start right now. She said Klonopin 2 mg twice a day work but then turned around and issues to take that. She did not want to talk about why she was here she did not want to talk about medicine infection did not want to talk about much of anything. Mental status exam: She did allow me to do a brief mental status: She was oriented to person place time but was still paranoid about circumstances in other people's intention. She had good eye contact was relatively pleasant but very cautious. Self-care was minimal but adequate gait and station were normal She could remember 3 of 3 objects after 5 minutes, she could not spell world backward saying that she was diagnosed with dyslexia and ADHD and always had trouble with math and words. She couldn't subtract 7 from 10 but not from 100. When asked how cats and snakes were alike she abstracted that they were both animals and then shut down and could not think of anything other than they both had eyes. To abstract the meaning of the proverb the grass is greener on the other side of the fence she said "appreciate what you have". No evidence of or acknowledgment of hearing voices or seeing things. She denies any substance use but did not want to talk about social history issues. She said, "I just needs some space maybe I can talk later" Diagnosis brief reactive psychosis possibly brought on by Adderall. Assessment: She seems a little less paranoid than yesterday but still does not want to take medicines, out of her room or participate in the program. She also did not want to participate in the interview so it was hard to assess. I think she still is irrationally fearful and therefore danger to herself it is impossible to assess any homicidal or suicidal thoughts and she does not want to open up and share.
[2023-08-05] MEDS: clonazePAM 1 MG TAB PO SCH ×2 (10:13→20:30)
[2023-08-05] MEDS: NICOTINE 14MG/24HR PATCH TRANSDERM SCH (10:13)
[2023-08-05 11:55] LABS: Chol/HDL Ratio 4.02 Ratio; LDL Cholesterol,Calculated 97.4 mg/dL (0.0-131.0)
[2023-08-05] MEDS: PRAZOSIN 1 MG CAP PO SCH (20:30)
--- NOTE | 2023-08-06 12:11 | P.PN ---
Progress Note - Text Progress Note Date: 08/06/23 Interval History: Patient was seen today for psychiatric follow-up and was curled up lying in her bed. She was agreeable to speak to chief writer briefly. She was fairly concrete, appeared to be paranoid. She was not able to explain much of why she came to the hospital. She states that she is still feeling anxious at this time. She claims that she does not trust others has mainly been staying in her room. She has been taking medications. We spoke about the court process and patient will see her admitted attorneys today for deferral. Claims that she is eating fairly at this time. Claims that she slept fairly last night. At this time patient denies any suicidal or homical ideations, intent or plan. Patient denies any auditory, visual hallucinations and denies any paranoia or delusions. Patient denies any side effects from the medications and has been compliant with meds. Mental Status Exam: General Appearance: Patient appears to be wrapped in her blankets, appears to be paranoid and anxious stated age is alert, directable, and attempts to be cooperative. Behavior: Patient is calmly seated without any agitated behavior. Paranoid and anxious. Speech: Patient's speech is fluent and nonpressured. Has attended, shaky Mood/Affect: Mood is "okay", affect is incongruent Suicidality/Homicidality: Patient denies having any suicidal or homicidal ideation intent or plan. Perceptions: Patient denies any visual hallucinations and denies any auditory hallucinations Though content/process: Endorsing paranoia, suspiciousness. Memory and concentration: AOX3, grossly intact for the purposes of this session Judgment and insight: Poor Assessment Psychosis unspecified, rule out secondary to stimulant use Anxiety disorder unspecified Rule out stimulant abuse nicotine dependence Plan: -Patient continues to meet criteria for inpatient psychiatric admission for symptom stabilization and safety. Patient has not signed adult voluntary form and medication consent and was placed in patient's chart. -Medications: Start Geodon 20 mg twice a day for psychosis/paranoia. Can continue with home dose of Klonopin 1 mg twice a day for anxiety.hold off on stimulants at this time. continue with home dose of prazosin 5 mg qhs for nightmares. -When necessary Ativan and Haldol for agitation/aggression. -NRT - nicotine patch -SW on board for discharge planning. Encouraged the patient to participate in milieu. Patient has her admitted attorneys coming in today for deferral, full court hearing on 08/08.
[2023-08-06] MEDS: NICOTINE 14MG/24HR PATCH TRANSDERM SCH (15:58)
[2023-08-06] MEDS: clonazePAM 1 MG TAB PO SCH ×2 (15:58→20:17)
[2023-08-06] MEDS: ZIPRASIDONE 20 MG CAP PO SCH ×2 (16:04→20:21)
[2023-08-06] MEDS: PRAZOSIN 1 MG CAP PO SCH (20:17)
[2023-08-07] MEDS: clonazePAM 1 MG TAB PO SCH ×2 (09:45→20:19)
[2023-08-07] MEDS: NICOTINE 14MG/24HR PATCH TRANSDERM SCH (09:45)
[2023-08-07] MEDS: ZIPRASIDONE 20 MG CAP PO SCH (09:46)
--- NOTE | 2023-08-07 11:46 | P.PN ---
Progress Note - Text Progress Note Date: 08/07/23 Interval History: Patient was seen today for psychiatric follow-up and was curled up lying in her bed. She was agreeable to speak to typewriter operator automatic briefly. She was fairly concrete, appeared to be paranoid, improving moderately. She claims that she is feeling fairly anxious, has been mainly keeping herself, continues to have fairly poor hygiene and grooming. She is taking medications at this time. She is not endorsing any delusions today. She was fairly focused on getting a "good night's sleep" and states that she is not able to sleep at nighttime. Claims that she is then up for meals. Not interested in going to groups. At this time patient denies any suicidal or homical ideations, intent or plan. Patient denies any auditory, visual hallucinations. Patient denies any side effects from the medications and has been compliant with meds. Mental Status Exam: General Appearance: Patient appears to be wrapped in her blankets, appears to be paranoid and anxious, mildly improving stated age is alert, directable, and attempts to be cooperative. Behavior: Patient is calmly seated without any agitated behavior. Paranoid and anxious, mildly improving. Speech: Patient's speech is fluent and nonpressured. some shaky Mood/Affect: Mood is "ok but anxious", affect is incongruent and anxious appearing. Suicidality/Homicidality: Patient denies having any suicidal or homicidal ideation intent or plan. Perceptions: Patient denies any visual hallucinations and denies any auditory hallucinations Though content/process: Endorsing paranoia, suspiciousness, improving midly. Memory and concentration: AOX3, grossly intact for the purposes of this session Judgment and insight: Poor, improving midlly. Assessment Psychosis unspecified, rule out secondary to stimulant use Anxiety disorder unspecified Rule out stimulant abuse nicotine dependence Plan: -Patient continues to meet criteria for inpatient psychiatric admission for symptom stabilization and safety. Patient has not signed adult voluntary form and medication consent and was placed in patient's chart. -Medications: increase/chgange Geodon 40 mg to HS for psychosis/paranoia. Can continue with home dose of Klonopin 1 mg twice a day for anxiety. continue with home dose of prazosin 5 mg qhs for nightmares. -When necessary Ativan and Haldol for agitation/aggression. -awaiting ekg -NRT - nicotine patch -SW on board for discharge planning. Encouraged the patient to participate in milieu. Patient has deferred 08/06.
[2023-08-07] MEDS: LORazepam 1 MG TAB PO PRN (13:22)
[2023-08-07] MEDS: PRAZOSIN 1 MG CAP PO SCH (20:20)
[2023-08-07] MEDS ORDERED: ZIPRASIDONE 40 MG CAP PO SCH (21:00)
[2023-08-08] MEDS: NICOTINE 14MG/24HR PATCH TRANSDERM SCH (09:40)
[2023-08-08] MEDS: clonazePAM 1 MG TAB PO SCH ×2 (09:42→20:22)
--- NOTE | 2023-08-08 10:17 | P.PN ---
Progress Note - Text Progress Note Date: 08/08/23 Interval History: Patient was seen today for psychiatric follow-up and was curled up lying in her bed. Patient continues to isolate in her room. She attempted to be more engaged in conversation. She was more awake. Today she was endorsing more paranoia towards other people on the unit. She states that she is not safe for her neighbors and does not want return back home. She did claim that she had a long history of schizophrenia "my whole life". Claims that her anxiety is fairly high, she was asking about more Klonopin. She denied any depression at this time. States that she is having a difficult time sleeping. Denies any changes in appetite. She has been fairly isolative, not going to any groups. continues to have fairly poor hygiene and grooming. She is taking medications at this time. At this time patient denies any suicidal or homical ideations, intent or plan. Patient denies any auditory, visual hallucinations. Patient denies any side effects from the medications and has been compliant with meds. Mental Status Exam: General Appearance: Patient appears to be wrapped in her blankets, appears to be paranoid and anxious, mildly improving stated age is alert, directable, and attempts to be cooperative. Behavior: Patient is calmly seated without any agitated behavior. Paranoid and anxious, mildly improving. Speech: Patient's speech is fluent and nonpressured. Mood/Affect: Mood is "anxious", affect is incongruent and anxious appearing. Suicidality/Homicidality: Patient denies having any suicidal or homicidal ideation intent or plan. Perceptions: Patient denies any visual hallucinations and denies any auditory hallucinations Though content/process: Endorsing paranoia, suspiciousness, improving midly. Memory and concentration: AOX3, grossly intact for the purposes of this session Judgment and insight: Poor, improving midlly Assessment Psychosis unspecified, rule out secondary to stimulant use Anxiety disorder unspecified Rule out stimulant abuse Plan: -Patient continues to meet criteria for inpatient psychiatric admission for symptom stabilization and safety. Patient has not signed adult voluntary form and medication consent and was placed in patient's chart. -Medications: increase Geodon 60 mg hs + 20 mg daily for psychosis/paranoia. Can continue with home dose of Klonopin 1 mg twice a day for anxiety. continue with home dose of prazosin 5 mg qhs for nightmares. added vistaril 25 mg daily for anxiety. -When necessary Ativan and Haldol for agitation/aggression. -awaiting ekg -NRT - none as patient does not smoke. -SW on board for discharge planning. Encouraged the patient to participate in milieu. Patient has deferred 08/06.
[2023-08-08] MEDS: hydrOXYzine pamoate 25 MG CAP PO SCH (11:41)
[2023-08-08] MEDS: ZIPRASIDONE 20 MG CAP PO SCH (11:42)
[2023-08-08] MEDS: LORazepam 1 MG TAB PO PRN ×2 (12:34→20:21)
[2023-08-08] MEDS: haloperidoL 5 MG TAB PO PRN (13:29)
[2023-08-08] MEDS: PRAZOSIN 1 MG CAP PO SCH (20:20)
[2023-08-08] MEDS ORDERED: ZIPRASIDONE 60 MG CAP PO SCH (21:00)
[2023-08-09] MEDS: clonazePAM 1 MG TAB PO SCH ×2 (08:10→20:33)
[2023-08-09] MEDS: hydrOXYzine pamoate 25 MG CAP PO SCH ×2 (08:10→11:02)
[2023-08-09] MEDS: ZIPRASIDONE 20 MG CAP PO SCH (08:10)
--- NOTE | 2023-08-09 10:11 | P.PN ---
Progress Note - Text Progress Note Date: 08/09/23 Interval History: Patient was seen today for psychiatric follow-up and was curled up lying in her bed. Patient continues to isolate in her room. She attempted to be more engaged in conversation. She was more awake. Today she was endorsing more paranoia towards other people on the unit. She states that she is afraid to return to home because of her neighbors. Claims that her anxiety is fairly high. She denied any depression at this time. States that she is having a difficult time sleeping. Denies any changes in appetite. She has been very isolative, not going to any groups. continues to have poor hygiene and grooming. She is taking medications at this time. At this time patient denies any suicidal or homical ideations, intent or plan. Patient denies any auditory, visual hallucinations. Patient denies any side effects from the medications and has been compliant with meds. Mental Status Exam: General Appearance: Patient appears to be wrapped in her blankets, appears to be paranoid and anxious, stated age is alert, poor hygiene, directable, and attempts to be cooperative. Behavior: Patient is calmly seated without any agitated behavior. Paranoid and anxious Speech: Patient's speech is fluent and nonpressured. Mood/Affect: Mood is "anxious", affect is incongruent and anxious appearing. Suicidality/Homicidality: Patient denies having any suicidal or homicidal ideation intent or plan. Perceptions: Patient denies any visual hallucinations and denies any auditory hallucinations Though content/process: Endorsing paranoia, suspiciousness, improving midly. Memory and concentration: AOX3, grossly intact for the purposes of this session Judgment and insight: Poor, improving midlly Assessment Psychosis unspecified, rule out secondary to stimulant use Anxiety disorder unspecified Rule out stimulant abuse Plan: -Patient continues to meet criteria for inpatient psychiatric admission for symptom stabilization and safety. Patient has not signed adult voluntary form and medication consent and was placed in patient's chart. -Medications: discontinue Geodon, added Invega 3mg po bid for psychosis. Can continue with home dose of Klonopin 1 mg twice a day for anxiety. continue with home dose of prazosin 5 mg qhs for nightmares. increase vistaril 50 mg daily for anxiety. -When necessary Ativan and Haldol for agitation/aggression. -EKG reviewed -NRT - none as patient does not smoke. -SW on board for discharge planning. Encouraged the patient to participate in milieu. Patient has deferred 08/06.
[2023-08-09] MEDS: PALIPERIDONE 3 MG TAB.ER.24 PO SCH ×2 (11:01→20:33)
[2023-08-09] MEDS: LORazepam 1 MG TAB PO PRN ×2 (11:23→22:37)
[2023-08-09] MEDS: PRAZOSIN 1 MG CAP PO SCH (20:33)
[2023-08-10] MEDS: haloperidoL 5 MG TAB PO PRN ×2 (00:04→20:19)
[2023-08-10] MEDS: clonazePAM 1 MG TAB PO SCH ×2 (08:05→20:19)
[2023-08-10] MEDS: hydrOXYzine pamoate 25 MG CAP PO SCH (08:06)
[2023-08-10] MEDS: PALIPERIDONE 3 MG TAB.ER.24 PO SCH ×2 (08:06→20:19)
--- NOTE | 2023-08-10 11:11 | P.PN ---
Progress Note - Text Progress Note Date: 08/10/23 Interval History: Patient was seen today for curled up lying in her bed. Patient continues to i solate in her room. Patient does get up for meals. She was more awake. Claims that her anxiety is high. She denied any depression at this time. Paranoid about her neighbors. States that she is having a difficult time sleeping, only getting about 3 hours last night. Denies any changes in appetite. She has been very isolative, not going to any groups, but says she will try to go today. continues to have poor hygiene and grooming. She is compliant with medications at this time. At this time patient denies any suicidal or homical ideations, intent or plan. Patient denies visual and AH hallucinations. Patient denies any side effects from the medications. Mental Status Exam: General Appearance: Patient appears to be wrapped in her blankets, appears to be paranoid and anxious, stated age is alert, poor hygiene, directable, and attempts to be cooperative. Behavior: Patient is calmly curled up in bed, without any agitated behavior. Paranoid and anxious, mildly improving Speech: Patient's speech is fluent and nonpressured. Mood/Affect: Mood is "anxious", affect is incongruent and anxious appearing. Suicidality/Homicidality: Patient denies having any suicidal or homicidal ideation intent or plan. Perceptions: Patient denies any visual hallucinations and denies any auditory hallucinations Though content/process: Endorsing paranoia, suspiciousness, improving midly. Memory and concentration: AOX3, grossly intact for the purposes of this session Judgment and insight: Poor, improving midlly Assessment Psychosis unspecified, rule out secondary to stimulant use Anxiety disorder unspecified Rule out stimulant abuse Plan: -Patient continues to meet criteria for inpatient psychiatric admission for symptom stabilization and safety. Patient has not signed adult voluntary form and medication consent and was placed in patient's chart. -Medications:Increase Invega 6mg po qam and Invega 3mg qhs for psychosis. continue with home dose of Klonopin 1 mg twice a day for anxiety. continue with home dose of prazosin 5 mg qhs for nightmares. Vistaril 50 mg daily for anxiety. -When necessary Ativan and Haldol for agitation/aggression. -EKG reviewed -NRT - none as patient does not smoke. -SW on board for discharge planning. Encouraged the patient to participate in milieu. Patient has deferred 08/06.
[2023-08-10] MEDS: PALIPERIDONE 6 MG TAB.ER.24 PO SCH (11:32)
[2023-08-10] MEDS: PROPRANOLOL LA 60 MG CAP.SA.24H PO SCH (14:32)
[2023-08-10] MEDS: PRAZOSIN 1 MG CAP PO SCH (20:18)
[2023-08-10] MEDS: LORazepam 1 MG TAB PO PRN (20:19)
[2023-08-10] MEDS: HALOPERIDOL LACTATE 5 MG/ML 1 ML VIAL IM PRN (23:04)
[2023-08-10] MEDS: LORazepam 2 MG/ML INJ IM PRN (23:05)
[2023-08-11] MEDS: clonazePAM 1 MG TAB PO SCH ×2 (08:29→19:36)
[2023-08-11] MEDS: PALIPERIDONE 6 MG TAB.ER.24 PO SCH (08:30)
[2023-08-11] MEDS: hydrOXYzine pamoate 25 MG CAP PO SCH (08:30)
[2023-08-11] MEDS: PROPRANOLOL LA 60 MG CAP.SA.24H PO SCH (08:30)
[2023-08-11] MEDS: LORazepam 1 MG TAB PO PRN (14:49)
[2023-08-11] MEDS: PRAZOSIN 1 MG CAP PO SCH (19:36)
[2023-08-11] MEDS: PALIPERIDONE 3 MG TAB.ER.24 PO SCH (19:36)
[2023-08-11] MEDS ORDERED: traZODone HCL 50 MG TAB PO SCH (21:00)
[2023-08-11] MEDS: LORazepam 2 MG/ML INJ IM PRN (22:08)
[2023-08-11] MEDS: HALOPERIDOL LACTATE 5 MG/ML 1 ML VIAL IM PRN (22:08)
[2023-08-12] MEDS ORDERED: ALPRAZolam 0.5 MG TAB PO STA (01:27)
[2023-08-12] MEDS ORDERED: ALPRAZolam 0.25 MG TAB PO STA (01:34)
[2023-08-12] MEDS: LORazepam 1 MG TAB PO PRN ×2 (02:09→21:41)
[2023-08-12] MEDS: PROPRANOLOL LA 60 MG CAP.SA.24H PO SCH (08:50)
[2023-08-12] MEDS: clonazePAM 1 MG TAB PO SCH ×2 (08:50→20:08)
[2023-08-12] MEDS: hydrOXYzine pamoate 25 MG CAP PO SCH (08:50)
[2023-08-12] MEDS: PALIPERIDONE 6 MG TAB.ER.24 PO SCH (08:50)
--- NOTE | 2023-08-12 09:56 | P.PN ---
Progress Note - Text Interval history: Patient was seen in her room and was directable and agreeable to speak with business writer. She continues to report poor sleep. She states feeling fatigued, and depressed.. At this time patient denies any suicidal or homicidal ideations intent or plan. Denies any Auditory or visual hallucinations. Patient denies any side effects from the medications and has been compliant with meds. Mental status exam: General Appearance: [Patient appears to be stated age is alert, directable, and cooperative.] Behavior: [No agitated behavior. Patient is calm and directable] Speech: Patient's speech is fluent and nonpressured. Mood/Affect: Mood is improving mildly, affect is congruent and constricted. Suicidality/Homicidality: Patient denies having any suicidal or homicidal ideation intent or plan. Perceptions: Patient denies any auditory or visual hallucinations. Though content/process: [Mild paranoia elicited and thought process is linear and goal-directed.] Memory and concentration: AOX3, grossly intact for the purposes of this session Judgment and insight: improving mildly Assessment/Plan: Continue with current diagnosis. Patient continues to meet criteria for inpatient psychiatric admission for symptom stabilization and safety. We will add trazodone 50 mg for sleep. Continue all other medications Monitor for medication compliance and for any psychotropic medication side effects. Will continue to monitor ongoing response to treatment. Encouraged participation in milieu. Of note, patient was inquiring about control shot
--- NOTE | 2023-08-12 10:00 | P.PN ---
Progress Note - Text Interval history: Per RN: Patient pacing, visible upset, unable to settle to sleep. Thoughts rummiinating. No ideation to harm self. States that Trazadone that was started tonight have given her the opposite side effects and feels worse. Would like the IM of Ativan and Haldol. Positive reinforcment provided and support. IM of Ativan and haldol at 2200. Up to the med window at midnight, tearful and upselt, pacing, wants to talk to docotr, 'just help me get to sleep ' nothing is owrking I feel worse'. Per MAR, Ativan was given again later at night. Patient was seen in the cafeteria and was directable and agreeable to speak with check writer. At this time patient denies any suicidal or homicidal ideations intent or plan. Denies any Auditory or visual hallucinations. She states that trazodone did the opposite effect for her and made her more restless and anxious and less sleepy. Mental status exam: General Appearance: [Patient appears to be stated age is alert, directable, and cooperative.] Behavior: [No agitated behavior. Patient is calm and directable] Speech: Patient's speech is fluent and nonpressured. Mood/Affect: Mood is improving mildly, affect is congruent and constricted. Suicidality/Homicidality: Patient denies having any suicidal or homicidal ideation intent or plan. Perceptions: Patient denies any auditory or visual hallucinations. Though content/process: [There is no evidence of any delusional thought content and thought process is linear and goal-directed.] Memory and concentration: AOX3, grossly intact for the purposes of this session Judgment and insight: improving mildly Assessment/Plan: Continue with current diagnosis. Patient continues to meet lazaro fletcher for inpatient psychiatric admission for symptom stabilization and safety. d/c trazodone. [Patient will be maintained on current psychotropic medication regimen.] Monitor for medication compliance and for any psychotropic medication side effects. Will continue to monitor ongoing response to treatment. Encouraged participation in milieu.
[2023-08-12] MEDS: PALIPERIDONE 3 MG TAB.ER.24 PO SCH (20:07)
[2023-08-12] MEDS: PRAZOSIN 1 MG CAP PO SCH (20:08)
[2023-08-12] MEDS: haloperidoL 5 MG TAB PO PRN (23:02)
[2023-08-13] MEDS ORDERED: diphenhydrAMINE 50 MG CAP PO STA ×2 (00:41→22:37)
[2023-08-13] MEDS: clonazePAM 1 MG TAB PO SCH ×2 (07:59→20:39)
[2023-08-13] MEDS: PALIPERIDONE 6 MG TAB.ER.24 PO SCH ×2 (07:59→20:40)
[2023-08-13] MEDS: PROPRANOLOL LA 60 MG CAP.SA.24H PO SCH (07:59)
[2023-08-13] MEDS: hydrOXYzine pamoate 25 MG CAP PO SCH ×2 (07:59→20:39)
--- NOTE | 2023-08-13 12:31 | P.PN ---
Progress Note - Text Progress Note Date: 08/13/23 Interval History: Patient was seen today in her room. Patient has been getting up and participat ing in groups. Patient does get up for meals. She was more awake. Claims that her anxiety is getting better. She denied any depression at this time. Denies any changes in appetite. she claims that her anxiety is still elevated however improving midlly. She claims she still has paranoia pertaining to other patients on the unit. She says she has racing thoughts at nighttime, will adjust medication and monitor for side effects. she claims that her sleep is very poor and was asking about different medication options to help. states that she is having racing thoughts/paranboi more at nighttime. Continues to have improving hygiene and grooming. She is compliant with medications at this time. At this time patient denies any suicidal or homical ideations, intent or plan. Patient denies visual and AH hallucinations. Patient denies any side effects from the medications. Mental Status Exam: General Appearance: Patient is dressed and seated on bed, stated age is alert, improving hygiene, directable, and is cooperative. Behavior: Patient is calmly seated on bed, without any agitated behavior. mildly improving, appears less anxious Speech: Patient's speech is fluent and nonpressured. hesitant. Mood/Affect: Mood is "anxious", affect is incongruent and anxious appearing. improving Suicidality/Homicidality: Patient denies having any suicidal or homicidal ideation intent or plan. Perceptions: Patient denies any visual hallucinations and denies any auditory hallucinations Though content/process: Endorsing paranoia, suspiciousness, improving midly. Memory and concentration: AOX3, grossly intact for the purposes of this session Judgment and insight: chronically Poor, improving midlly Assessment Psychosis unspecified, rule out secondary to stimulant use Anxiety disorder unspecified Rule out stimulant abuse Plan: -Patient continues to meet criteria for inpatient psychiatric admission for symptom stabilization and safety. Patient has not signed adult voluntary form and medication consent and was placed in patient's chart. -Medications: Increase Invega 6mg po bid for psychosis. continue with home dose of Klonopin 1 mg twice a day for anxiety. Increase Propranolol LA 80mg qd for anxiety. Doxipin 20mg qhs for sleep continue with home dose of prazosin 5 mg qhs for nightmares. Vistaril 50 mg daily for anxiety. -When necessary Ativan and Haldol for agitation/aggression. -NRT - none as patient does not smoke. -SW on board for discharge planning. Encouraged the patient to participate in milieu. Patient has deferred 08/06.
[2023-08-13] MEDS: LORazepam 1 MG TAB PO PRN (19:03)
[2023-08-13] MEDS: PRAZOSIN 1 MG CAP PO SCH (20:40)
[2023-08-13] MEDS ORDERED: DOXEPIN 10 MG CAP PO SCH (21:00)
[2023-08-14] MEDS: haloperidoL 5 MG TAB PO PRN ×2 (01:52→19:06)
[2023-08-14] MEDS: LORazepam 1 MG TAB PO PRN ×2 (05:45→14:00)
[2023-08-14] MEDS: PALIPERIDONE 6 MG TAB.ER.24 PO SCH (07:54)
[2023-08-14] MEDS: hydrOXYzine pamoate 25 MG CAP PO SCH ×2 (07:54→20:15)
[2023-08-14] MEDS: PROPRANOLOL LA 80 MG CAP.SA.24H PO SCH (07:54)
[2023-08-14] MEDS: clonazePAM 1 MG TAB PO SCH ×2 (07:55→20:15)
--- NOTE | 2023-08-14 10:58 | P.PN ---
Progress Note - Text Progress Note Date: 08/14/23 Interval History: Patient was seen today in her room. Patient has been getting up and participat ing in some groups, however, mainly isolating to her room. Patient does get up for meals. Claims that her anxiety is "pretty high". She denied any depression at this time. She says she has racing thoughts, and trouble sleeping at nighttime, will adjust medication and monitor for side effects. Good appetite. she claims that her anxiety is still elevated, possibly due to the holidays coming up. She claims she still has paranoia pertaining to "the same people as before" .Patient counseled on different medications, and is agreeable to change meds at this time. States that she is having racing thoughts/paranoia, more at nighttime. Continues to have improving hygiene and grooming. She is compliant with medications at this time. At this time patient denies any suicidal or homical ideations, intent or plan. Patient denies visual and AH hallucinations. Patient denies any side effects from the medications. Mental Status Exam: General Appearance: Patient is dressed and seated on bed, stated age is alert, improving hygiene, directable, and is cooperative. Behavior: Patient is calmly seated on bed, without any agitated behavior. mildly improving, Speech: Patient's speech is fluent and nonpressured. hesitant. Mood/Affect: Mood is "anxious", affect is incongruent and anxious appearing. mildly improving Suicidality/Homicidality: Patient denies having any suicidal or homicidal ideation intent or plan. Perceptions: Patient denies any visual hallucinations and denies any auditory hallucinations Though content/process: Endorsing paranoia, suspiciousness Memory and concentration: AOX3, grossly intact for the purposes of this session Judgment and insight: chronically Poor, improving midlly Assessment Psychosis unspecified, rule out secondary to stimulant use Anxiety disorder unspecified Rule out stimulant abuse Plan: -Patient continues to meet criteria for inpatient psychiatric admission for symptom stabilization and safety. Patient has not signed adult voluntary form, however, deferred with her title attorney on 08/06, and medication consent and was placed in patient's chart. -Medications: start Zyprexa 10mg qhs for mood stabilization/psychosis/insomnia. start Prollixin 3mg bid, continue with home dose of Klonopin 1 mg twice a day for anxiety. Propranolol LA 80mg qd for anxiety. increase Doxipin 25mg qhs for sleep continue with home dose of prazosin 5 mg qhs for nightmares. Vistaril 50 mg daily for anxiety. discontinue Invega -When necessary Ativan and Haldol for agitation/aggression. -NRT - none as patient does not smoke. -SW on board for discharge planning. Encouraged the patient to participate in milieu. Patient has deferred 08/06.
[2023-08-14 13:19] VITALS: BMI 31.5
[2023-08-14] MEDS: PRAZOSIN 1 MG CAP PO SCH (20:15)
[2023-08-14] MEDS: OLANZapine 10 MG TAB PO SCH (20:15)
[2023-08-14] MEDS ORDERED: DOXEPIN 25 MG CAP PO SCH (21:00)
[2023-08-14] MEDS: LORazepam 2 MG/ML INJ IM PRN (21:26)
[2023-08-15] MEDS: LORazepam 1 MG TAB PO PRN ×3 (01:30→18:18)
[2023-08-15] MEDS: haloperidoL 5 MG TAB PO PRN ×2 (01:30→13:29)
[2023-08-15] MEDS: clonazePAM 1 MG TAB PO SCH (08:01)
[2023-08-15] MEDS: PROPRANOLOL LA 80 MG CAP.SA.24H PO SCH (08:02)
[2023-08-15] MEDS: hydrOXYzine pamoate 25 MG CAP PO SCH ×2 (08:02→20:04)
--- NOTE | 2023-08-15 11:06 | P.PN ---
Progress Note - Text Progress Note Date: 08/15/23 Interval History: Patient was seen today in her room. Patient has been getting up and participat ing in some groups, however, mainly isolating to her room. Patient does get up for meals. Claims that her anxiety is "pretty high". And she is "not good. She claims that she is depressed at this time. She says she has racing thoughts, and trouble sleeping at nighttime, said she had severe panic attacks last night. Good appetite. she claims that her anxiety is elevated. She claims she still has paranoia pertaining to "the same people as before, coming to get her." Tolerating med changes. Will adjust klonopin, due to increased anxiety. No complaints of any other side effects. States that she is still having racing thoughts/paranoia, more at nighttime. Continues to have improving hygiene and grooming. She is compliant with medications at this time. At this time patient denies any suicidal or homical ideations, intent or plan. Patient denies visual and AH hallucinations. Talked with patient about copiing skills. Patient verbalized understanding. Mental Status Exam: General Appearance: Patient is dressed and seated on bed, stated age is alert, improving hygiene, directable, and is cooperative. Behavior: Patient is calmly seated on bed, without any agitated behavior. mildly improving, Speech: Patient's speech is fluent and nonpressured. hesitant, timid Mood/Affect: Mood is "anxious", affect is incongruent and anxious appearing. mildly improving Suicidality/Homicidality: Patient denies having any suicidal or homicidal ideation intent or plan. Perceptions: Patient denies any visual hallucinations and denies any auditory hallucinations Though content/process: Endorsing paranoia, suspiciousness, vague Memory and concentration: AOX3, grossly intact for the purposes of this session Judgment and insight: chronically Poor, improving mildly Assessment Psychosis unspecified, rule out secondary to stimulant use Anxiety disorder unspecified Rule out stimulant abuse Plan: -Patient continues to meet criteria for inpatient psychiatric admission for symptom stabilization and safety. Patient has not signed adult voluntary form, however, deferred with her trial attorney on 08/06, and medication consent and was placed in patient's chart. -Medications: Zyprexa 10mg qhs for mood stabilization/psychosis/insomnia. Increase Prollixin 5mg bid, for psychosis, add klonopin 2mg qhs for anxiety. change Klonopin 1 mg once a day for anxiety. Propranolol LA 80mg qd for anxiety. increase Doxipin 50mg qhs for sleep continue with home dose of prazosin 5 mg qhs for nightmares. Vistaril 50 mg daily for anxiety. Will consider starting antidepressant on 08/16 for mood/anxiety. -When necessary Ativan and Haldol for agitation/aggression. -NRT - none as patient does not smoke. -SW on board for discharge planning. Encouraged the patient to participate in milieu. Patient has deferred 08/06.
[2023-08-15] MEDS: ACETAMINOPHEN TAB 325 MG TAB PO PRN ×2 (13:29→22:19)
[2023-08-15] MEDS: PRAZOSIN 1 MG CAP PO SCH (20:03)
[2023-08-15] MEDS: OLANZapine 10 MG TAB PO SCH (20:04)
[2023-08-15] MEDS: DOXEPIN 25 MG CAP PO SCH (20:04)
[2023-08-15] MEDS ORDERED: clonazePAM 1 MG TAB PO SCH (21:00)
[2023-08-15] MEDS: HALOPERIDOL LACTATE 5 MG/ML 1 ML VIAL IM PRN (22:38)
[2023-08-15] MEDS: LORazepam 2 MG/ML INJ IM PRN (22:38)
[2023-08-16] MEDS: ACETAMINOPHEN TAB 325 MG TAB PO PRN (02:27)
[2023-08-16] MEDS: LORazepam 1 MG TAB PO PRN ×3 (03:33→23:54)
[2023-08-16] MEDS: haloperidoL 5 MG TAB PO PRN ×2 (03:33→16:07)
[2023-08-16] MEDS: PROPRANOLOL LA 80 MG CAP.SA.24H PO SCH (08:17)
[2023-08-16] MEDS: hydrOXYzine pamoate 25 MG CAP PO SCH ×2 (08:18→20:11)
[2023-08-16] MEDS: clonazePAM 1 MG TAB PO SCH ×2 (08:18→15:00)
--- NOTE | 2023-08-16 10:16 | P.PN ---
Progress Note - Text Progress Note Date: 08/16/23 Interval History: Patient was seen today in her room. Patient does get up for meals. Claims that her anxiety is "worse". And she is "not good". She claims that she is not depressed at this time. She says she has trouble sleeping at nighttime. Will adjust medications Good appetite. she claims that her anxiety is elevated. She claims she still has paranoia pertaining to "the same people as before, coming to get her." Tolerating med changes. No complaints of any other side effects. States that she is still having racing thoughts/paranoia, more at nighttime. Continues to have improving hygiene and grooming. She is compliant with medications at this time. At this time patient denies any suicidal or homical ideations, intent or plan. Patient denies visual and AH hallucinations. Mental Status Exam: General Appearance: Patient is dressed and seated on bed, stated age is alert, improving hygiene, directable, and is cooperative. Behavior: Patient is calmly seated on bed, without any agitated behavior. mildly improving, Speech: Patient's speech is fluent and nonpressured. hesitant, timid, mildly improving Mood/Affect: Mood is "anxious", affect is incongruent and anxious appearing. mildly improving Suicidality/Homicidality: Patient denies having any suicidal or homicidal ideation intent or plan. Perceptions: Patient denies any visual hallucinations and denies any auditory hallucinations Though content/process: Endorsing paranoia, suspiciousness, vague, improving mildly Memory and concentration: AOX3, grossly intact for the purposes of this session Judgment and insight: chronically Poor, improving mildly Assessment Psychosis unspecified, rule out secondary to stimulant use Anxiety disorder unspecified Rule out stimulant abuse Plan: -Patient continues to meet criteria for inpatient psychiatric admission for symptom stabilization and safety. Patient has not signed adult voluntary form, however, deferred with her windows application administrator on 08/06, and medication consent and was placed in patient's chart. -Medications: add Zoloft 50mg qam for mood/anxiety. d/c Zyprexa 10mg qhs for mood stabilization/psychosis/insomnia. Prollixin 5mg bid, for psychosis, change klonopin 1mg every morning for anxiety + 1 mg at 4pm for anxiety. Propranolol LA 80mg qd for anxiety, considering increasing tomorrow if needed. Doxipin 50mg qhs for sleep, add Ambien 10mg qhs for sleep. continue with home dose of prazosin 5 mg qhs for nightmares. Vistaril 50 mg daily for anxiety. -When necessary Ativan and Haldol for agitation/aggression. -NRT - none as patient does not smoke. -SW on board for discharge planning. Encouraged the patient to participate in milieu. Patient has deferred 08/06.
[2023-08-16] MEDS: SERTRALINE 50 MG TAB PO SCH (12:01)
[2023-08-16] MEDS: MAG HYDROX/AL HYDROX/SIMETH 30 ML CUP PO PRN (16:35)
[2023-08-16] MEDS: DOXEPIN 25 MG CAP PO SCH (20:11)
[2023-08-16] MEDS: PRAZOSIN 1 MG CAP PO SCH (20:12)
[2023-08-16] MEDS ORDERED: ZOLPIDEM 5 MG TAB PO SCH (21:00)
[2023-08-17] MEDS: ACETAMINOPHEN TAB 325 MG TAB PO PRN ×2 (01:14→18:41)
[2023-08-17] MEDS: PROPRANOLOL LA 80 MG CAP.SA.24H PO SCH (08:53)
[2023-08-17] MEDS: hydrOXYzine pamoate 25 MG CAP PO SCH ×2 (08:53→19:57)
[2023-08-17] MEDS: clonazePAM 1 MG TAB PO SCH ×3 (08:53→19:56)
[2023-08-17] MEDS: SERTRALINE 50 MG TAB PO SCH (08:54)
[2023-08-17] MEDS ORDERED: PROPRANOLOL LA 60 MG CAP.SA.24H PO SCH (09:00)
[2023-08-17] MEDS ORDERED: SERTRALINE 50 MG TAB PO STA (09:54)
--- NOTE | 2023-08-17 10:02 | P.PN ---
Progress Note - Text Progress Note Date: 08/17/23 Interval History: Patient was seen today in her room. Patient does get up for meals. Claims that her anxiety is "high". She claims that she is not depressed at this time. She says she has trouble falling asleep at nighttime, she claims the ambien is not helping and the klonopin was better for her. Good appetite. She denies paranoia at this time. Continues to have improving hygiene and grooming. No complaints of any other side effects. States that she is still having racing thoughts. She is compliant with medications at this time, and denies side effects. At this time patient denies any suicidal or homical ideations, intent or plan. Patient denies visual and AH hallucinations. Mental Status Exam: General Appearance: Patient is dressed and seated on bed, stated age is alert, improving hygiene, directable, and is more cooperative. Behavior: Patient is calmly seated on bed, without any agitated behavior. mildly improving, Speech: Patient's speech is fluent and nonpressured. hesitant, timid, mildly improving Mood/Affect: Mood is "anxious", affect is incongruent and anxious appearing. mildly improving Suicidality/Homicidality: Patient denies having any suicidal or homicidal ideation intent or plan. Perceptions: Patient denies any visual hallucinations and denies any auditory hallucinations Though content/process: Endorsing paranoia, suspiciousness, vague, improving mildly Memory and concentration: AOX3, grossly intact for the purposes of this session Judgment and insight: chronically Poor, improving mildly Assessment Psychosis unspecified, rule out secondary to stimulant use Anxiety disorder unspecified Rule out stimulant abuse Plan: -Patient continues to meet criteria for inpatient psychiatric admission for symptom stabilization and safety. Patient has not signed adult voluntary form, however, deferred with her commercial attorney on 08/06, and medication consent and was placed in patient's chart. Patient should consider gene site testing due to suspicion of metabolism changes. -Medications: increase Zoloft 100mg qam for mood/anxiety. d/c Prollixin 5mg bid, for psychosis, klonopin 1mg every morning for anxiety, klonopin 1mg at 4pm, add klonopin 2mg qhs for anxiety/sleep. Propranolol LA 80mg qd for anxiety. increase Doxipin 75 mg qhs for sleep, d/c Ambien 10mg qhs for sleep. continue with home dose of prazosin 5 mg qhs for nightmares. Vistaril 50 mg bid for anxiety. -When necessary Ativan and Haldol for agitation/aggression. -NRT - none as patient does not smoke. -SW on board for discharge planning. Encouraged the patient to participate in milieu. Patient has deferred 08/06. hopeful for d/c next week
[2023-08-17] MEDS: LORazepam 1 MG TAB PO PRN ×2 (11:18→20:48)
[2023-08-17] MEDS: PRAZOSIN 1 MG CAP PO SCH (19:56)
[2023-08-17] MEDS: DOXEPIN 25 MG CAP PO SCH (19:57)
[2023-08-17] MEDS: MAG HYDROX/AL HYDROX/SIMETH 30 ML CUP PO PRN (22:01)
[2023-08-18] MEDS: ACETAMINOPHEN TAB 325 MG TAB PO PRN ×4 (04:16→21:18)
[2023-08-18 05:51] VITALS: TEMP 98.1
[2023-08-18] MEDS: clonazePAM 1 MG TAB PO SCH ×3 (09:05→20:22)
[2023-08-18] MEDS: PROPRANOLOL LA 80 MG CAP.SA.24H PO SCH (09:05)
[2023-08-18] MEDS: hydrOXYzine pamoate 25 MG CAP PO SCH ×2 (09:05→20:22)
[2023-08-18] MEDS: SERTRALINE 100 MG TAB PO SCH (09:05)
--- NOTE | 2023-08-18 09:29 | P.PN ---
Progress Note - Text Progress Note Date: 08/18/23 Interval History: Patient was seen today up near the nurse's desk. Patient was agreeable street drug in the office today. She appears to have a brighter affect today mildly improving. Continues to state that she has "high anxiety" and states that she again did not seem well last night. She was requesting to be put on "lunesta" instead of klonopin. She also states that she did have nightmares last night. Appears to be less paranoid today however is endorsing feeling "paranoid". Good appetite. Continues to have improving hygiene and grooming. No complaints of any other side effects. States that she is still having racing thoughts. She is compliant with medications at this time, and denies side effects. At this time patient denies any suicidal or homical ideations, intent or plan. Patient denies visual and AH hallucinations. Mental Status Exam: General Appearance: Patient is dressed and seated on bed, stated age is alert, improving hygiene, directable, and is more cooperative. Behavior: Patient is calmly seated on bed, without any agitated behavior. mildly improving, Speech: Patient's speech is fluent and nonpressured. less hesitant, timid, mildly improving Mood/Affect: Mood is "anxious", affect is incongruent and anxious appearing. mildly improving Suicidality/Homicidality: Patient denies having any suicidal or homicidal ideation intent or plan. Perceptions: Patient denies any visual hallucinations and denies any auditory hallucinations Though content/process: Endorsing paranoia, suspiciousness, vague, improving mildly Memory and concentration: AOX3, grossly intact for the purposes of this session Judgment and insight: chronically Poor, improving mildly Assessment Psychosis unspecified, rule out secondary to stimulant use Anxiety disorder unspecified Rule out stimulant abuse Plan: -Patient continues to meet criteria for inpatient psychiatric admission for symptom stabilization and safety. Patient has not signed adult voluntary form, however, deferred with her attorney at law on 08/06, and medication consent and was placed in patient's chart. -Medications: Zoloft 100mg qam for mood/anxiety. klonopin 1mg every morning for anxiety, klonopin 1mg at 4pm + 2mg qhs for anxiety/sleep. Propranolol LA 80mg qd for anxiety. Doxipin 75 mg qhs for sleep, increase prazosin 6 mg qhs for nightmares. Vistaril 50 mg bid for anxiety. -When necessary Ativan and Haldol for agitation/aggression. -NRT - none as patient does not smoke. -SW on board for discharge planning. Encouraged the patient to participate in milieu. Patient has deferred 08/06. hopeful for d/c -sun. suggested that patient consider gene site testing due to suspicion of metabolism changes of the medications. Also recommending Sleep study due to patients persistent difficulties with sleep.
[2023-08-18] MEDS: MAG HYDROX/AL HYDROX/SIMETH 30 ML CUP PO PRN (10:46)
[2023-08-18] MEDS: LORazepam 1 MG TAB PO PRN (10:46)
[2023-08-18] MEDS: DOXEPIN 25 MG CAP PO SCH (20:22)
[2023-08-18] MEDS: PRAZOSIN 1 MG CAP PO SCH (20:22)
[2023-08-19] MEDS: LORazepam 1 MG TAB PO PRN ×2 (00:32→18:08)
[2023-08-19] MEDS: hydrOXYzine pamoate 25 MG CAP PO SCH ×2 (06:50→20:20)
[2023-08-19] MEDS: ACETAMINOPHEN TAB 325 MG TAB PO PRN ×3 (07:25→22:12)
[2023-08-19] MEDS: clonazePAM 1 MG TAB PO SCH ×3 (08:27→20:20)
[2023-08-19] MEDS: SERTRALINE 100 MG TAB PO SCH (08:27)
[2023-08-19] MEDS: PROPRANOLOL LA 80 MG CAP.SA.24H PO SCH (08:28)
--- NOTE | 2023-08-19 10:28 | P.PN ---
Progress Note - Text Progress Note Date: 08/19/23 Interval History: Patient was seen today sitting up in her bed. Patient continues to mainly iso lative in her room. States that she is feeling less paranoid today about other people. Claims that she is feeling a bit better with regards to her mood and anxiety today. She states that she was able to sleep a bit better last night. She was asking about getting restarted back on Lamictal for her seizures and also to help stabilize her mood. We reviewed the chance of possible rash and to patient to monitor her skin. Will restart this today. Aims to have a Good appetite. Continues to have improving hygiene and grooming. No complaints of any other side effects. States that she is still having racing thoughts. She is compliant with medications at this time, and denies side effects. At this time patient denies any suicidal or homical ideations, intent or plan. Patient denies visual and AH hallucinations. Mental Status Exam: General Appearance: Patient is dressed and seated on bed, stated age is alert, improving hygiene, directable, and is more cooperative. Behavior: Patient is calmly seated on bed, without any agitated behavior. mildly improving, Speech: Patient's speech is fluent and nonpressured. less hesitant, timid, mildly improving Mood/Affect: Mood is "anxious but better", affect is incongruent and anxious appearing. mildly improving Suicidality/Homicidality: Patient denies having any suicidal or homicidal ideation intent or plan. Perceptions: Patient denies any visual hallucinations and denies any auditory hallucinations Though content/process: Endorsing less paranoia, vague, improving mildly Memory and concentration: AOX3, grossly intact for the purposes of this session Judgment and insight: improving mildly Assessment Psychosis unspecified, rule out secondary to stimulant use Anxiety disorder unspecified Rule out stimulant abuse Plan: -Patient continues to meet criteria for inpatient psychiatric admission for symptom stabilization and safety. Patient has not signed adult voluntary form, however, deferred with her energy attorney on 08/06, and medication consent and was placed in patient's chart. -Medications: increase Zoloft 150mg qam for mood/anxiety. klonopin 1mg every morning for anxiety, klonopin 1mg at 4pm + 2mg qhs for anxiety/sleep. Prop ranolol LA 80mg qd for anxiety. Doxipin 75 mg qhs for sleep, increase prazosin 6 mg qhs for nightmares. Vistaril 50 mg bid for anxiety. added lamictal 25 mg bid for mood stabilization/depression/AED -When necessary Ativan and Haldol for agitation/aggression. -NRT - none as patient does not smoke. -SW on board for discharge planning. Encouraged the patient to participate in milieu. Patient has deferred 08/06. hopeful for d/c -sun? suggested that patient consider gene site testing due to suspicion of metabolism changes of the medications. Also recommending Sleep study due to patients persistent difficulties with sleep. Patient will attempt tomorrow to start calling for [facility] bed
[2023-08-19] MEDS: lamoTRIgine 25 MG TAB PO SCH ×2 (11:19→20:19)
[2023-08-19] MEDS: PRAZOSIN 1 MG CAP PO SCH (20:19)
[2023-08-19] MEDS: DOXEPIN 25 MG CAP PO SCH (20:20)
[2023-08-19] MEDS: MAG HYDROX/AL HYDROX/SIMETH 30 ML CUP PO PRN (22:25)
[2023-08-20] MEDS: LORazepam 1 MG TAB PO PRN ×3 (02:25→22:09)
[2023-08-20] MEDS: ACETAMINOPHEN TAB 325 MG TAB PO PRN ×3 (02:32→21:17)
[2023-08-20] MEDS: hydrOXYzine pamoate 25 MG CAP PO SCH ×2 (08:01→20:15)
[2023-08-20] MEDS: SERTRALINE 100 MG TAB PO SCH (08:02)
[2023-08-20] MEDS: PROPRANOLOL LA 80 MG CAP.SA.24H PO SCH (08:02)
[2023-08-20] MEDS: lamoTRIgine 25 MG TAB PO SCH ×3 (08:03→20:15)
[2023-08-20] MEDS: clonazePAM 1 MG TAB PO SCH ×3 (08:03→20:15)
[2023-08-20] MEDS: MAG HYDROX/AL HYDROX/SIMETH 30 ML CUP PO PRN ×2 (10:39→23:21)
--- NOTE | 2023-08-20 11:09 | P.PN ---
Progress Note - Text Progress Note Date: 08/20/23 Interval History: Patient was seen In the hallway, and agreeable to speak with communications writer in the off ice. States that she is still having some paranoid thoughts however is not able to share to whom. Patient focused on discharge. Participating in milieu more. Claims that she is feeling a bit better with regards to her mood and anxiety today. She states that she was able to sleep a bit better last night. Continues to have a Good appetite. Continues to have improving hygiene and grooming. No complaints of any other side effects. She is compliant with medications at this time, and denies side effects. At this time patient denies any suicidal or homical ideations, intent or plan. Patient denies visual and AH hallucinations. Mental Status Exam: General Appearance: Patient is dressed and seated on bed, stated age is alert, improving hygiene, directable, and is more cooperative. Behavior: Patient is calmly seated on bed, without any agitated behavior. mildly improving, Speech: Patient's speech is fluent and nonpressured. less hesitant, timid, mildly improving Mood/Affect: Mood is "anxious but better", affect is incongruent and anxious appearing. mildly improving Suicidality/Homicidality: Patient denies having any suicidal or homicidal ideation intent or plan. Perceptions: Patient denies any visual hallucinations and denies any auditory hallucinations Though content/process: Endorsing less paranoia, vague, improving mildly Memory and concentration: AOX3, grossly intact for the purposes of this session Judgment and insight: improving mildly Assessment Psychosis unspecified, rule out secondary to stimulant use Anxiety disorder unspecified Rule out stimulant abuse Plan: -Patient continues to meet criteria for inpatient psychiatric admission for symptom stabilization and safety. Patient has not signed adult voluntary form, however, deferred with her divorce attorney on 08/06, and medication consent and was placed in patient's chart. -Medications: Zoloft 150mg qam for mood/anxiety. klonopin 1mg every morning for anxiety, klonopin 1mg at 4pm + 2mg qhs for anxiety/sleep. Propranolol LA 80mg qd for anxiety. Doxipin 75 mg qhs for sleep, prazosin 6 mg qhs for nightmares. Vistaril 50 mg bid for anxiety. Increase lamictal 25 mg tid for mood stabilization/depression/AED -When necessary Ativan and Haldol for agitation/aggression. -NRT - none as patient does not smoke. -SW on board for discharge planning. Encouraged the patient to participate in milieu. Patient has deferred 08/06. suggested that patient consider gene site testing due to suspicion of metabolism changes of the medications. Also recommending Sleep study due to patients persistent difficulties with sleep. Patient plans on going to a women's group home at discharge likely sunday
[2023-08-20] MEDS: DOXEPIN 25 MG CAP PO SCH (20:15)
[2023-08-20] MEDS: PRAZOSIN 1 MG CAP PO SCH (20:15)
[2023-08-20 22:22] LABS: Appearance,Urine Clear (Clear); Bilirubin,Urine Negative (Negative); Blood,Urine Negative (Negative); Color,Urine Colorless; Glucose,Urine (UA) Negative (Negative); Ketones,Urine Negative (Negative); Leukocyte Esterase,Urine Negative (Negative); Nitrite,Urine Negative (Negative); PH, Urine 6.5 (5.0-8.0); Protein,Urine Negative (Negative); Specific Gravity,Urine 1.007 (1.001-1.035); Urobilinogen,Urine <2.0 mg/dL (<2.0)
[2023-08-20] MEDS: haloperidoL 5 MG TAB PO PRN (23:21)
[2023-08-21] MEDS: ACETAMINOPHEN TAB 325 MG TAB PO PRN ×3 (01:20→12:19)
[2023-08-21 06:30] VITALS: RESP 16
[2023-08-21] MEDS: LORazepam 1 MG TAB PO PRN ×2 (07:09→14:18)
[2023-08-21] MEDS: lamoTRIgine 25 MG TAB PO SCH ×3 (07:56→20:19)
[2023-08-21] MEDS: hydrOXYzine pamoate 25 MG CAP PO SCH ×2 (07:56→20:19)
[2023-08-21] MEDS: SERTRALINE 100 MG TAB PO SCH (07:56)
[2023-08-21] MEDS: PROPRANOLOL LA 80 MG CAP.SA.24H PO SCH (07:56)
[2023-08-21] MEDS: clonazePAM 1 MG TAB PO SCH ×3 (07:56→20:19)
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
[2023-08-21] MEDS: MAG HYDROX/AL HYDROX/SIMETH 30 ML CUP PO PRN (12:20)
[2023-08-21] MEDS: haloperidoL 5 MG TAB PO PRN (17:13)
[2023-08-21] MEDS: PRAZOSIN 1 MG CAP PO SCH (20:19)
[2023-08-21] MEDS: DOXEPIN 25 MG CAP PO SCH (20:20)
[2023-08-22] MEDS: LORazepam 1 MG TAB PO PRN ×2 (01:08→11:38)
[2023-08-22] MEDS: clonazePAM 1 MG TAB PO SCH ×2 (07:53→15:45)
[2023-08-22] MEDS: hydrOXYzine pamoate 25 MG CAP PO SCH (07:53)
[2023-08-22] MEDS: PROPRANOLOL LA 80 MG CAP.SA.24H PO SCH (07:53)
[2023-08-22 08:06] VITALS: BP 109/70; PULSE 94
[2023-08-22] MEDS ORDERED: SERTRALINE 100 MG TAB PO SCH (09:00)
[2023-08-22] MEDS ORDERED: lamoTRIgine 100 MG TAB PO SCH (09:00)
--- NOTE | 2023-08-22 09:56 | P.DS ---
Providers Date of admission: 08/04/23 17:34 Expected date of discharge: 08/22/23 Attending physician: Tarun Rodríguez MD Consults: 08/04/23 17:37 Consult Physician Routine Consulting Provider: Jenna Farrar Consult Reason/Comments: medical management Do you want consulting provider notified?: Yes Primary care physician: Ron Murillo - Discharge Diagnosis(es) (1) Psychosis Current Visit: Yes Status: Acute Priority: High (2) Anxiety disorder Current Visit: Yes Status: Acute Priority: High Hospital Course: Admission HPI: Admission note was completed by magnetic tape typewriter operator "Patient is a pleasant 38-year-old female presenting to the emergency Department by EPS with reported petition for mental health evaluation. Patient admits to feeling paranoid and having thoughts that multiple people are trying to kill her, especially her neighbors. Patient admits to not sleeping the last 4 or 5 days. Patient not eating well. Patient admits to having racing thoughts. Patient states she is not taking her medications for the past few days. Patient does occasionally drink alcohol." Hospital course: Upon admission to the unit patient was admitted involuntarily on a petition and certificate and a second certificate was completed and faxed with the courts. Patient ended up signing a deferral with the assistant district attorney and agreeing to treatment. Patient was initially fairly isolative, staying in her room, had a high levels of anxiety and paranoia however with time treatment she eventually was more visible on the unit, going to groups and also got along well with other patients on the unit and followed unit protocol. Patient was compliant with the medications and denied any side effects throughout hospital course. Patient was started on Zoloft and increased her dose of 20 mg daily for mood/anxiety, Klonopin 1 mg every morning +1 mg every 4 p.m. +2 mg daily at bedtime for anxiety/sleep. Propranolol long-acting 80 mg daily for anxiety, doxepin 75 mg daily at bedtime for sleep/mood, prazosin 6 mg daily at bedtime for nightmares, Vistaril 50 mg twice a day for anxiety, Lamictal 100 mg daily for mood stabilization/depression. Patient spoke of her stressors and engaged in therapy both group and individual. Patient was also seen by medical team for history and physical exam. Throughout the course of the hospitalization patient gradually improved with regards to mood, anxiety, sleep and returned back to their baseline level of functioning. On the day of discharge patient denied any suicidal or homicidal ideations intent or plan denied any auditory or visual hallucinations. Patient endorsed wanting to live for her health and future. The patient denied any access to guns or weapons. Patient denied any paranoia and did not endorse any delusions. Patient does have a significant history of substance abuse and was counseled on abstaining from all substances including alcohol and marijuana. Patient elected to do outpatient substance use treatment program through [facility]. Patient was also counseled on the medications and need for regular compliance and was encouraged to follow-up with their outpatient appointment for mental health and also for primary care. Prior to discharge a family meeting will be arranged by social media assistant to answer any questions and ensure safety upon discharge. Patient was initially interested in going to a [facility] [place] [facility] however apparently was not approved through screening. Patient claims that she would prefer to return back to her apartment with close [facility] monitoring and follow-up. Mental status exam: General Appearance: Patient appears to be tall, stated age is alert, pleasant, and cooperative. Patient is in no acute distress and has improved hygiene and grooming Behavior: Patient is calmly seated without any agitated behavior. Speech: Patient's speech is fluent and nonpressured. Mood/Affect: Patient reports their mood is "better", affect is congruent and euthymic. less anxious Suicidality/Homicidality: Patient denies having any suicidal or homicidal ideation intent or plan. Perceptions: Patient denies any auditory or visual hallucinations. Though content/process: There is no evidence of any delusional thought content and thought process is linear and goal-directed. more future oriented Memory and concentration: AOX3, grossly intact for the purposes of this session. Can spell "WORLD" backwards correctly. Judgment and insight: improved with guarded prognosis Impression: Psychosis unspecified Anxiety disorder NOS Rule out stimulant abuse Plan: -Continue with discharge today as patient has improved and stabilized psychiatrically and is not currently an imminent threat to herself and/or others. -Continue medications: Zoloft 200 mg daily for mood/anxiety, Klonopin 1 mg every morning +1 mg at 4 PM +2 mg daily at bedtime for anxiety/sleep. Patient will be given a 10 day supply of the snow refills. Propranolol long-acting by mouth 80 mg daily for anxiety/tachycardia, doxepin 75 mg daily at bedtime for sleep/mood, prazosin 6 mg daily at bedtime for nightmares, Vistaril 50 mg twice a day for anxiety, Lamictal 100 mg daily for mood stabilization/depression. Patient was counseled on the need to monitor for any rashes that may develop with this medication and she is currently denying any at this time. -Patient was counseled on the need for medication compliance and appropriate follow-up at mental health and also primary care for medical issues. Patient verbalized understanding and agreed. -Social work to do to help with patient's discharge today back to her apartment. Social work also to arrange for patients follow up appointments with [facility] for psychiatric care along with follow up with primary care provider. -Patient counseled on abstaining from recreational drugs and marijuana and alcohol. Was informed/educated on the adverse effects on their physical and mental health. Patient verbally agreed and understood. -Patient was instructed to return to the hospital or seek immediate medical care if their psychiatric or medical symptoms do worsen or reoccur. Laboratory Results WBC 6.6 k/uL (3.8-10.6) 08/04/23 15:51 RBC 4.25 m/uL (3.80-5.40) 08/04/23 15:51 Hgb 14.7 gm/dL (11.4-16.0) 08/04/23 15:51 Hct 41.6 % (34.0-46.0) 08/04/23 15:51 MCV 98.0 fL (80.0-100.0) 08/04/23 15:51 MCH 34.5 pg (25.0-35.0) 08/04/23 15:51 MCHC 35.2 g/dL (31.0-37.0) 08/04/23 15:51 RDW 13.4 % (11.5-15.5) 08/04/23 15:51 Plt Count 227 k/uL (150-450) 08/04/23 15:51 MPV 7.8 08/04/23 15:51 Sodium 143 mmol/L (137-145) 08/04/23 15:51 Potassium 3.0 mmol/L (3.5-5.1) L 08/04/23 15:51 Chloride 107 mmol/L (98-107) 08/04/23 15:51 Carbon Dioxide 21 mmol/L (22-30) L 08/04/23 15:51 Anion Gap 15 mmol/L 08/04/23 15:51 BUN 13 mg/dL (7-17) 08/04/23 15:51 Creatinine 1.26 mg/dL (0.52-1.04) H 08/04/23 15:51 Est GFR (CKD-EPI)AfAm 62 (>60 ml/min/1.73 sqM) 08/04/23 15:51 Est GFR (CKD-EPI)NonAf 54 (>60 ml/min/1.73 sqM) 08/04/23 15:51 Glucose 111 mg/dL (74-99) H 08/04/23 15:[address] Glu mg/dL 128 mg/dL 08/04/23 15:51 Hemoglobin A1c 6.1 % (<=6.0) H 08/04/23 15:51 Calcium 10.1 mg/dL (8.4-10.2) 08/04/23 15:51 Total Bilirubin 1.0 mg/dL (0.2-1.3) 08/04/23 15:51 AST 39 U/L (14-36) H 08/04/23 15:51 ALT 47 U/L (4-34) H 08/04/23 15:51 Alkaline Phosphatase 39 U/L (38-126) 08/04/23 15:51 Total Protein 7.1 g/dL (6.3-8.2) 08/04/23 15:51 Albumin 4.5 g/dL (3.5-5.0) 08/04/23 15:51 Triglycerides 242.00 mg/dL (0.00-149.00) H 08/04/23 15:51 Cholesterol 194.00 mg/dL (0.00-200.00) 08/04/23 15:51 LDL Cholesterol, Calc 97.4 mg/dL (0.0-131.0) 08/04/23 15:51 VLDL Cholesterol, Calc 48.40 mg/dL (5.00-40.00) H 08/04/23 15:51 HDL Cholesterol 48.20 mg/dL (40.00-60.00) 08/04/23 15:51 Cholesterol/HDL Ratio 4.02 Ratio 08/04/23 15:51 TSH 1.060 mIU/L (0.465-4.680) 08/04/23 15:51 Urine Color Colorless 08/20/23: Urine Appearance Clear (Clear) 08/20/23: Urine pH 6.5 (5.0-8.0) 08/20/23 21: Ur Specific [place] 1.007 (1.001-1.035) 08/20/23 21: Urine Protein Negative (Negative) 08/20/23: Urine Glucose (UA) Negative (Negative) 08/20/23 21: Urine Ketones Negative (Negative) 08/20/23: Urine Blood Negative (Negative) 08/20/23: Urine Nitrite Negative (Negative) 08/20/23: Urine Bilirubin Negative (Negative) 08/20/23: Urine Urobilinogen <2.0 mg/dL (<2.0) 08/20/23: Ur Leukocyte Esterase Negative (Negative) 08/20/23: Urine HCG, Qual Not Detected (Not Detectd) 08/04/23 12:02 Urine Opiates Screen Not Detected (NotDetected) 08/04/23 12:02 Ur Oxycodone Screen Not Detected (NotDetected) 08/04/23 12:02 Urine Methadone Screen Not Detected (NotDetected) 08/04/23 12:02 Ur Propoxyphene Screen Not Detected (NotDetected) 08/04/23 12:02 Ur Barbiturates Screen Not Detected (NotDetected) 08/04/23 12:02 U Tricyclic Antidepress Not Detected (NotDetected) 08/04/23 12:02 Ur Phencyclidine Scrn Not Detected (NotDetected) 08/04/23 12:02 Ur Amphetamines Screen Detected (NotDetected) H 08/04/23 12:02 U Methamphetamines Scrn Not Detected (NotDetected) 08/04/23 12:02 U Benzodiazepines Scrn Not Detected (NotDetected) 08/04/23 12:02 Urine Cocaine Screen Not Detected (NotDetected) 08/04/23 12:02 U Marijuana (THC) Screen Not Detected (NotDetected) 08/04/23 12:02 Coronavirus (PCR) Not Detected (Not Detectd) 08/04/23 15:51 Vital Signs Temp 98.1 F 08/21/23 06:21 Pulse 94 08/22/23 07:55 Resp 16 08/21/23 06:21 BP 109/70 08/22/23 07:55 Pulse Ox 99 08/21/23 06:21 FiO2 Allergies Allergy/AdvReac Type Severity Reaction Status Date / Time No Known Allergies Allergy Verified 08/04/23 14:02 Patient Condition at Discharge: Stable Plan - Discharge Summary Discharge Rx Participant: No New Discharge Prescriptions: New Propranolol LA [Inderal LA] 80 mg PO DAILY 30 Days #30 cap clonazePAM [KlonoPIN] 1 mg PO DAILY 10 Days #10 tab lamoTRIgine [LaMICtal] 100 mg PO DAILY #30 tab Doxepin [SINEquan] 75 mg PO HS 30 Days #90 cap hydrOXYzine pamoate [Vistaril] 50 mg PO BID 30 Days #120 cap clonazePAM [KlonoPIN] 2 mg PO HS 10 Days #10 tab clonazePAM [KlonoPIN] 1 mg PO 1600 10 Days #10 tab Prazosin [Minipress] 6 mg PO HS 30 Days #180 cap Sertraline [Zoloft] 200 mg PO DAILY 30 Days #60 tab Continue Medroxyprogesterone Acetate [Depo-Provera] 150 mg IM Q84D Discontinued clonazePAM [KlonoPIN] 1 mg PO BID Dextroamphetamine/Amphetamine [Adderall] 15 mg PO BID Topiramate [Topamax] 25 mg PO DAILY Prazosin [Minipress] 5 mg PO HS Cyclobenzaprine [Flexeril] 5 mg PO BID PRN PRN Reason: Muscle Spasm lamoTRIgine [LaMICtal] 150 mg PO BID FLUoxetine HCL [PROzac] 40 mg PO HS Naltrexone HCl [Revia] 50 mg PO DAILY Discharge Medication List Medroxyprogesterone Acetate [Depo-Provera] 150 mg IM Q84D 08/04/23 [History] Doxepin [SINEquan] 75 mg PO HS 30 Days #90 cap 08/22/23 [Rx] Prazosin [Minipress] 6 mg PO HS 30 Days #180 cap 08/22/23 [Rx] Propranolol LA [Inderal LA] 80 mg PO DAILY 30 Days #30 cap 08/22/23 [Rx] Sertraline [Zoloft] 200 mg PO DAILY 30 Days #60 tab 08/22/23 [Rx] clonazePAM [KlonoPIN] 1 mg PO 1600 10 Days #10 tab 08/22/23 [Rx] clonazePAM [KlonoPIN] 1 mg PO DAILY 10 Days #10 tab 08/22/23 [Rx] clonazePAM [KlonoPIN] 2 mg PO HS 10 Days #10 tab 08/22/23 [Rx] hydrOXYzine pamoate [Vistaril] 50 mg PO BID 30 Days #120 cap 08/22/23 [Rx] lamoTRIgine [LaMICtal] 100 mg PO DAILY #30 tab 08/22/23 [Rx] Follow up Appointment(s)/Referral(s): Ron Murillo DO [Primary Care Provider] - 1-2 days Activity/Diet/Wound Care/Special Instructions: Avoid the use of street drugs and alcohol. Take all medications as prescribed. When you are in need of refills on your medications, please contact your medical provider and/or outpatient psychiatrist/provider to have this done. Please go to your scheduled outpatient appointment for aftercare treatment. If symptoms return or become worse, call the crisis line at and/or go to the nearest emergency room for evaluation. National Suicide Hotline 988. Discharge/Stand Alone Forms: AA Meetings [place] Discharge Disposition: HOME SELF-CARE
[2023-08-22] MEDS: ACETAMINOPHEN TAB 325 MG TAB PO PRN (10:33)
== END 2023-08-22 15:55 | disposition home or self-care (01) | DRG 751 ==
LOC: EC 09:39 → SUPCPDRO 09:39 → 3MHU 17:34
PROVIDERS: ADMIT Psychiatry & Neurology Psychiatry; ATTEND Psychiatry & Neurology Psychiatry
DX: F29 Unspecified psychosis not due to a substance or known physiological condition (principal); F17.210 Nicotine dependence, cigarettes, uncomplicated; R00.0 Tachycardia, unspecified; Z71.6 Tobacco abuse counseling; F41.0 Panic disorder [episodic paroxysmal anxiety]; F15.10 Other stimulant abuse, uncomplicated; G40.909 Epilepsy, unspecified, not intractable, without status epilepticus; Z79.899 Other long term (current) drug therapy; Z81.8 Family history of other mental and behavioral disorders; Z28.311 Partially vaccinated for COVID-19; Z28.21 Immunization not carried out because of patient refusal; Z71.3 Dietary counseling and surveillance; Z11.52 Encounter for screening for COVID-19; Z86.19 Personal history of other infectious and parasitic diseases
CPT/HCPCS: 36415; 80053; 80061; 80306; 81003; 81025; 82075; 83036; 84443; 85027; 87635; 93005; 99285

== ENCOUNTER 2023-08-30 17:05 | Emergency (ER) | payer OTHER ==
--- NOTE | 2023-08-30 18:39 | ED ---
General Adult HPI - General Source: patient Mode of arrival: ambulatory Limitations: no limitations <Dez Buchanan - Last Filed: 08/30/23 18:39> - General Source: patient, RN notes reviewed Mode of arrival: ambulatory Limitations: no limitations <Mckenzie Ace - Last Filed: 08/31/23 23:28> <Carlos Bui - Last Filed: 09/03/23 23:05> - General Chief complaint: Psychiatric Symptoms Stated complaint: mental health Time Seen by Provider: 08/30/23 18:39 - History of Present Illness Initial comments: 38-year-old female presenting to the ED with a chief complaint of psychiatric problem patient states for the past month she has been hearing voices. Patient did note sore throat and triage nurse however patient currently denies this. She notes that she currently feels faint as she reports not having any food for the past 2 days. (Dez Buchanan) 38-year-old female presents to the emergency department for chief complaint of auditory hallucinations times one month. She does state that she has been off her medication for the past 1-2 days. She states that her symptoms are worse and she feels very anxious and agitated. She states that she hears voices that will not stop. She currently denies any physical symptoms. She does have a long-standing psychiatric history and has been admitted multiple times in the past. (Mckenzie Ace) - Related Data Home Medications Medication Instructions Recorded Confirmed Medroxyprogesterone Acetate 150 mg IM Q84D 08/04/23 08/30/23 [Depo-Provera] clonazePAM [KlonoPIN] 1 mg PO DAILY@1600 08/30/23 08/30/23 Previous Rx's Medication Instructions Recorded Doxepin [SINEquan] 75 mg PO HS 30 Days #90 cap 08/22/23 Prazosin [Minipress] 6 mg PO HS 30 Days #180 cap 08/22/23 Propranolol LA [Inderal LA] 80 mg PO DAILY 30 Days #30 cap 08/22/23 Sertraline [Zoloft] 200 mg PO DAILY 30 Days #60 tab 08/22/23 clonazePAM [KlonoPIN] 1 mg PO DAILY 10 Days #10 tab 08/22/23 clonazePAM [KlonoPIN] 2 mg PO HS 10 Days #10 tab 08/22/23 hydrOXYzine pamoate [Vistaril] 50 mg PO BID 30 Days #120 cap 08/22/23 lamoTRIgine [LaMICtal] 100 mg PO DAILY #30 tab 08/22/23 Allergies Allergy/AdvReac Type Severity Reaction Status Date / Time No Known Allergies Allergy Verified 08/30/23 21:15 Review of Systems ROS Other: All systems not noted in ROS Statement are negative. <Dez Buchanan - Last Filed: 08/30/23 18:39> ROS Other: All systems not noted in ROS Statement are negative. <Mckenzie Ace - Last Filed: 08/31/23 23:28> ROS Other: All systems not noted in ROS Statement are negative. <Carlos Bui - Last Filed: 09/03/23 23:05> ROS Statement: Those systems with pertinent positive or pertinent negative responses have been documented in the HPI. Past Medical History Past Medical History: Seizure Disorder Additional Past Medical History / Comment(s): anxiety, osteomyelitis right knee History of Any Multi-Drug Resistant Organisms: None Reported Past Surgical History: No Surgical Hx Reported Past Anesthesia/Blood Transfusion Reactions: No Reported Reaction Past Psychological History: Anxiety, Depression Smoking Status: Never smoker Past Alcohol Use History: None Reported Past Drug Use History: None Reported, Prescription Drug Abuse - Past Family History Father Additional Family Medical History / Comment(s): Father is in his 40s with no major medical problems. Mother Family Medical History: Hypertension Additional Family Medical History / Comment(s): Mother with history of ALLERGIES, anxiety, hypertension Sister(s) Additional Family Medical History / Comment(s): She has one sister with no major medical problems. She does not have any brothers. She does not have any children. <Dez Buchanan - Last Filed: 08/30/23 18:39> General Exam Limitations: no limitations General appearance: alert Extremities exam: Present: normal inspection Back exam: Present: normal inspection Neurological exam: Present: alert <Dez Buchanan - Last Filed: 08/30/23 18:39> Limitations: no limitations General appearance: alert, anxious Head exam: Present: atraumatic, normocephalic, normal inspection Eye exam: Present: normal appearance, PERRL, EOMI. Absent: scleral icterus, conjunctival injection, periorbital swelling ENT exam: Present: normal exam, mucous membranes moist Neck exam: Present: normal inspection. Absent: tenderness, meningismus, lymphadenopathy Respiratory exam: Present: normal lung sounds bilaterally. Absent: respiratory distress, wheezes, rales, rhonchi, stridor Cardiovascular Exam: Present: regular rate, normal rhythm, normal heart sounds. Absent: systolic murmur, diastolic murmur, rubs, gallop, clicks GI/Abdominal exam: Present: soft, normal bowel sounds. Absent: distended, tenderness, guarding, rebound, rigid Extremities exam: Present: normal inspection Back exam: Present: normal inspection Neurological exam: Present: alert, oriented X3 Psychiatric exam: Present: agitated, anxious Skin exam: Present: warm, dry, intact, normal color. Absent: rash <Mckenzie Ace - Last Filed: 08/31/23 23:28> General appearance: alert, in no apparent distress Head exam: Present: atraumatic, normocephalic, normal inspection Eye exam: Present: normal appearance, PERRL, EOMI. Absent: scleral icterus, conjunctival injection, periorbital swelling ENT exam: Present: normal exam, mucous membranes moist Neck exam: Present: normal inspection. Absent: tenderness, meningismus, lymphadenopathy Respiratory exam: Present: normal lung sounds bilaterally. Absent: respiratory distress, wheezes, rales, rhonchi, stridor Cardiovascular Exam: Present: regular rate, normal rhythm, normal heart sounds. Absent: systolic murmur, diastolic murmur, rubs, gallop, clicks GI/Abdominal exam: Present: soft, normal bowel sounds. Absent: distended, tenderness, guarding, rebound, rigid Extremities exam: Present: normal inspection, full ROM, normal capillary refill. Absent: tenderness, pedal edema, joint swelling, calf tenderness Back exam: Present: normal inspection Neurological exam: Present: alert, oriented X3, CN II-XII intact Psychiatric exam: Present: normal affect, normal mood Skin exam: Present: warm, dry, intact, normal color. Absent: rash <Carlos Bui - Last Filed: 09/03/23 23:05> Course <Carlos Bui - Last Filed: 09/03/23 23:05> Vital Signs 08/30/23 08/31/23 17:08 04:58 Temperature 97.4 F L 98.2 F Pulse Rate 92 84 Respiratory 20 18 Rate Blood Pressure 130/93 132/93 O2 Sat by Pulse 98 98 Oximetry - Reevaluation(s) Reevaluation #1: 08/31/23 02:16 Record is reviewed (Carlos Bui) Reevaluation #2: 08/31/23 02:16 Clear for psychiatric evaluation (Carlos Bui) Medical Decision Making <Dez Buchanan - Last Filed: 08/30/23 18:39> - Lab Data Result diagrams: 08/30/23 19:39 08/30/23 19:39 <Mckenzie Ace - Last Filed: 08/31/23 23:28> - Lab Data Result diagrams: 08/30/23 19:39 08/30/23 19:39 <Carlos Bui - Last Filed: 09/03/23 23:05> - Medical Decision Making Quicknote portion performed. Signed Dez Buchanan PA-C (Dez Buchanan) Was pt. sent in by a medical professional or institution (Dr. PA, KENO CLERK, urgent care, hospital, or retirement...) When possible be specific @ -No Did you speak to anyone other than the patient for history (EMS, parent, family, police, friend...)? What history was obtained from this source @ -No Did you review nursing and triage notes (agree or disagree)? Why? @ -I reviewed and agree with nursing and triage notes Were old charts reviewed (outside hosp., previous admission, EMS record, old EKG, old radiological studies, urgent care reports/EKG's, retirement records)? Report findings @ -No old charts were reviewed Differential Diagnosis (chest pain, altered mental status, abdominal pain women, abdominal pain men, vaginal bleeding, weakness, fever, dyspnea, syncope, headache, dizziness, GI bleed, back pain, seizure, CVA, palpatations, mental health, musculoskeletal)? @ -Differential Mental Health Depression, anxiety, bipolar, psychosis, schizophrenia, borderline personality, situational depression, adjustment disorder, behavioral disorder, brain tumor, malingering, substance abuse, encephalopathy, medication reaction, dementia, hypothyroidism, degenerative neurologic disorder, lupus.... This is not meant to be all-inclusive list EKG interpreted by me (3pts min.). @ -None X-rays interpreted by me (1pt min.). @ -None done CT interpreted by me (1pt min.). @ -None done U/S interpreted by me (1pt. min.). @ -None done What testing was considered but not performed or refused? (CT, X-rays, U/S, labs)? Why? @ -None What meds were considered but not given or refused? Why? @ -None Did you discuss the management of the patient with other professionals (professionals i.e. DrKate, PA, KENO CLERK, lab, RT, psych nurse, social sciences chair, pattern cutter, teacher, disability liaison officer, case making machine operator)? Give summary @ -EPS who is recommending inpatient treatment Was smoking cessation discussed for >3mins.? @ -No Was critical care preformed (if so, how long)? @ -No Were there social determinants of health that impacted care today? How? (Homelessness, low income, unemployed, alcoholism, drug addiction, harris sportation, low edu. Level, literacy, decrease access to med. care, senior care, rehab)? @ -No Was there de-escalation of care discussed even if they declined (Discuss DNR or withdrawal of care, Hospice)? DNR status @ -No What co-morbidities impacted this encounter? (DM, HTN, Smoking, COPD, CAD, Cancer, CVA, ARF, Chemo, Hep., AIDS, mental health diagnosis, sleep apnea, morbid obesity)? @ -None Was patient admitted / discharged? Hospital course, mention meds given and route, prescriptions, significant lab abnormalities, going to OR and other pertinent info. @ -transferred. Patient presented to the emergency department with chief complaint of auditory hallucinations. Laboratory studies obtained which show WBC 11.6, hemoglobin 14.1; CMP essentially unremarkable; UA negative for nitrite, trace leukocyte esterase, urine drug screen positive for amphetamines. Patient evaluated by emergency psychiatric services who is recommending inpatient treatment. Patient will be transferred for treatment. Case discussed with Dr. Bui Undiagnosed new problem with uncertain prognosis? @ -No Drug Therapy requiring intensive monitoring for toxicity (Heparin, Nitro, Insulin, Cardizem)? @ -No Were any procedures done? @ -No Diagnosis/symptom? @ -agitation, auditory hallucinations Acute, or Chronic, or Acute on Chronic? @ -acute Uncomplicated (without systemic symptoms) or Complicated (systemic symptoms)? @ -uncomplicated Side effects of treatment? @ -No Exacerbation, Progression, or Severe Exacerbation? @ -No Poses a threat to life or bodily function? How? (Chest pain, [place], [place], pneumonia, PE, COPD, DKA, ARF, appy, cholecystitis, CVA, Diverticulitis, Homicidal, Suicidal, threat to staff... and all critical care pts) @ -No (Mckenzie Ace) 38 female will be transferred for inpatient psychiatric evaluation and treatment (Carlos Bui) - Lab Data Lab Results 08/30/23 08/30/23 08/30/23 Range/Units 19:39 19:39 19:39 WBC 11.6 H (3.8-10.6) k/uL RBC 4.16 (3.80-5.40) m/uL Hgb 14.1 (11.4-16.0) gm/dL Hct 40.3 (34.0-46.0) % MCV 97.0 (80.0-100.0) fL MCH 33.9 (25.0-35.0) pg MCHC 35.0 (31.0-37.0) g/dL RDW 12.5 (11.5-15.5) % Plt Count 204 (150-450) k/uL MPV 8.2 Neutrophils % 68 % Lymphocytes % 22 % Monocytes % 4 % Eosinophils % 4 % Basophils % 0 % Neutrophils # 8.0 H (1.3-7.7) k/uL Lymphocytes # 2.6 (1.0-4.8) k/uL Monocytes # 0.4 (0-1.0) k/uL Eosinophils # 0.5 (0-0.7) k/uL Basophils # 0.0 (0-0.2) k/uL Sodium 138 (137-145) mmol/L Potassium 3.8 (3.5-5.1) mmol/L Chloride 102 (98-107) mmol/L Carbon Dioxide 23 (22-30) mmol/L Anion Gap 13 mmol/L BUN 15 (7-17) mg/dL Creatinine 0.85 (0.52-1.04) mg/dL Est GFR (CKD-EPI)AfAm >90 (>60 ml/min/1.73 sqM) Est GFR (CKD-EPI)NonAf 88 (>60 ml/min/1.73 sqM) Glucose 92 (74-99) mg/dL Calcium 10.2 (8.4-10.2) mg/dL Total Bilirubin 0.8 (0.2-1.3) mg/dL AST 25 (14-36) U/L ALT 40 H (4-34) U/L Alkaline Phosphatase 38 (38-126) U/L Total Protein 7.1 (6.3-8.2) g/dL Albumin 4.5 (3.5-5.0) g/dL Urine Color Light Yellow Urine Appearance Slightly Cloudy H (Clear) Urine pH 6.0 (5.0-8.0) Ur Specific [place] 1.010 (1.001-1.035) Urine Protein Negative (Negative) Urine Glucose (UA) Negative (Negative) Urine Ketones Negative (Negative) Urine Blood Negative (Negative) Urine Nitrite Negative (Negative) Urine Bilirubin Negative (Negative) Urine Urobilinogen <2.0 (<2.0) mg/dL Ur Leukocyte Esterase Trace H (Negative) Urine RBC 1 (0-5) /hpf Urine WBC 5 (0-5) /hpf Ur Squamous Epith Cells 2 (0-4) /hpf Urine Bacteria Occasional H (None) /hpf Urine Mucus Rare H (None) /hpf Urine HCG, Qual (Not Detectd) Urine Opiates Screen Not Detected (NotDetected) Ur Oxycodone Screen Not Detected (NotDetected) Urine Methadone Screen Not Detected (NotDetected) Ur Propoxyphene Screen Not Detected (NotDetected) Ur Barbiturates Screen Not Detected (NotDetected) Lamotrigine (2.0-15.0) ug/mL U Tricyclic Antidepress Not Detected (NotDetected) Ur Phencyclidine Scrn Not Detected (NotDetected) Ur Amphetamines Screen Detected H (NotDetected) U Methamphetamines Scrn Not Detected (NotDetected) U Benzodiazepines Scrn Not Detected (NotDetected) Urine Cocaine Screen Not Detected (NotDetected) U Marijuana (THC) Screen Not Detected (NotDetected) Influenza Type A (PCR) (Not Detectd) Influenza Type B (PCR) (Not Detectd) RSV (PCR) (Not Detectd) SARS-CoV-2 (PCR) (Not Detectd) 08/30/23 08/30/23 08/31/23 Range/Units 19:39 22:59 00:31 WBC (3.8-10.6) k/uL RBC (3.80-5.40) m/uL Hgb (11.4-16.0) gm/dL Hct (34.0-46.0) % MCV (80.0-100.0) fL MCH (25.0-35.0) pg MCHC (31.0-37.0) g/dL RDW (11.5-15.5) % Plt Count (150-450) k/uL MPV Neutrophils % % Lymphocytes % % Monocytes % % Eosinophils % % Basophils % % Neutrophils # (1.3-7.7) k/uL Lymphocytes # (1.0-4.8) k/uL Monocytes # (0-1.0) k/uL Eosinophils # (0-0.7) k/uL Basophils # (0-0.2) k/uL Sodium (137-145) mmol/L Potassium (3.5-5.1) mmol/L Chloride (98-107) mmol/L Carbon Dioxide (22-30) mmol/L Anion Gap mmol/L BUN (7-17) mg/dL Creatinine (0.52-1.04) mg/dL Est GFR (CKD-EPI)AfAm (>60 ml/min/1.73 sqM) Est GFR (CKD-EPI)NonAf (>60 ml/min/1.73 sqM) Glucose (74-99) mg/dL Calcium (8.4-10.2) mg/dL Total Bilirubin (0.2-1.3) mg/dL AST (14-36) U/L ALT (4-34) U/L Alkaline Phosphatase (38-126) U/L Total Protein (6.3-8.2) g/dL Albumin (3.5-5.0) g/dL Urine Color Urine Appearance (Clear) Urine pH (5.0-8.0) Ur Specific [place] (1.001-1.035) Urine Protein (Negative) Urine Glucose (UA) (Negative) Urine Ketones (Negative) Urine Blood (Negative) Urine Nitrite (Negative) Urine Bilirubin (Negative) Urine Urobilinogen (<2.0) mg/dL Ur Leukocyte Esterase (Negative) Urine RBC (0-5) /hpf Urine WBC (0-5) /hpf Ur Squamous Epith Cells (0-4) /hpf Urine Bacteria (None) /hpf Urine Mucus (None) /hpf Urine HCG, Qual Not Detected (Not Detectd) Urine Opiates Screen (NotDetected) Ur Oxycodone Screen (NotDetected) Urine Methadone Screen (NotDetected) Ur Propoxyphene Screen (NotDetected) Ur Barbiturates Screen (NotDetected) Lamotrigine 2.1 (2.0-15.0) ug/mL U Tricyclic Antidepress (NotDetected) Ur Phencyclidine Scrn (NotDetected) Ur Amphetamines Screen (NotDetected) U Methamphetamines Scrn (NotDetected) U Benzodiazepines Scrn (NotDetected) Urine Cocaine Screen (NotDetected) U Marijuana (THC) Screen (NotDetected) Influenza Type A (PCR) Not Detected (Not Detectd) Influenza Type B (PCR) Not Detected (Not Detectd) RSV (PCR) Not Detected (Not Detectd) SARS-CoV-2 (PCR) Not Detected (Not Detectd) Disposition <Dez Buchanan - Last Filed: 08/30/23 18:39> <Mckenzie Ace - Last Filed: 08/31/23 23:28> Is patient prescribed a controlled substance at d/c from ED?: No <Carlos Bui - Last Filed: 09/03/23 23:05> Clinical Impression: Psychosis, Anxiety disorder, Acute psychosis Disposition: TRANSFER TO PSYCH HOSP/UNIT Condition: Fair Referrals: Nonstaff,Physician [Primary Care Provider] - 1-2 days
[2023-08-30 19:56] LABS: Basophils % (A) 0 %; Eosinophils # (A) 0.5 k/uL (0-0.7); Eosinophils % (A) 4 %; HCT 40.3 % (34.0-46.0); HGB 14.1 gm/dL (11.4-16.0); Lymphocytes # (A) 2.6 k/uL (1.0-4.8); Lymphocytes % (A) 22 %; MCH 33.9 pg (25.0-35.0); Mean Platelet Volume 8.2; Monocytes # (A) 0.4 k/uL (0-1.0); Monocytes % (A) 4 %; Neutrophils % (A) 68 %; Platelet Count 204 k/uL (150-450); RBC 4.16 m/uL (3.80-5.40); RDW 12.5 % (11.5-15.5); WBC 11.6 k/uL (3.8-10.6)
[2023-08-30 20:09] LABS: ALT 40 U/L (4-34); AST 25 U/L (14-36); African American GFR (CKD) >90 (>60 ml/min/1.73 sqM); Albumin 4.5 g/dL (3.5-5.0); Alkaline Phosphatase 38 U/L (38-126); Anion Gap 13 mmol/L; Blood Urea Nitrogen 15 mg/dL (7-17); Calcium 10.2 mg/dL (8.4-10.2); Carbon Dioxide 23 mmol/L (22-30); Chloride 102 mmol/L (98-107); Glucose 92 mg/dL (74-99); Non-African American GFR(CKD) 88 (>60 ml/min/1.73 sqM); Potassium 3.8 mmol/L (3.5-5.1); Sodium 138 mmol/L (137-145); Total Bilirubin 0.8 mg/dL (0.2-1.3); Total Protein 7.1 g/dL (6.3-8.2)
[2023-08-30 20:55] LABS: Amphetamine Screen,Urine Detected (NotDetected); Barbiturate Screen,Urine Not Detected (NotDetected); Benzodiazepines Screen,Urine Not Detected (NotDetected); Cocaine Screen,Urine Not Detected (NotDetected); Methadone Screen, Urine Not Detected (NotDetected); Opiate Screen,Urine Not Detected (NotDetected); Oxycodone Screen, Urine Not Detected (NotDetected); Phencyclidine Screen,Urine Not Detected (NotDetected); Tricyclic Antidepressant,Urine Not Detected (NotDetected); Urn Cannabinoid Scrn Not Detected (NotDetected)
[2023-08-30 20:59] LABS: Appearance,Urine Slightly Cloudy (Clear); Bilirubin,Urine Negative (Negative); Blood,Urine Negative (Negative); Color,Urine Light Yellow; Glucose,Urine (UA) Negative (Negative); Ketones,Urine Negative (Negative); Nitrite,Urine Negative (Negative); Protein,Urine Negative (Negative); Urobilinogen,Urine <2.0 mg/dL (<2.0)
[2023-08-30 21:00] LABS: Leukocyte Esterase,Urine Trace (Negative)
[2023-08-30 21:03] LABS: Bacteria,Urine Occasional /hpf; Mucus,Urine Rare /hpf; RBC,Urine 1 /hpf (0-5); Squamous Epithelial Cell,Urine 2 /hpf (0-4); WBC,Urine 5 /hpf (0-5)
[2023-08-30] MEDS ORDERED: LORazepam 1 MG TAB PO STA (21:11)
[2023-08-30] MEDS ORDERED: hydrOXYzine pamoate 25 MG CAP PO STA (21:25)
[2023-08-31] MEDS ORDERED: LORazepam 1 MG TAB PO STA ×2 (00:43→04:53)
[2023-08-31] MEDS ORDERED: haloperidoL 5 MG TAB PO STA (01:57)
[2023-08-31] MEDS ORDERED: ACETAMINOPHEN TAB 325 MG TAB PO STA (04:51)
[2023-08-31 05:16] VITALS: BP 132/93; PULSE 84; RESP 18; TEMP 98.2
[2023-08-31] MEDS ORDERED: lamoTRIgine 100 MG TAB PO SCH (09:00)
== END 2023-08-31 07:35 ==
LOC: EC 17:05
DX: F41.9 Anxiety disorder, unspecified (principal); F23 Brief psychotic disorder; F32.A Depression, unspecified; Z79.899 Other long term (current) drug therapy; Z20.822 Contact with and (suspected) exposure to COVID-19
CPT/HCPCS: 82075; 36415; 80053; 80175; 85025; 81001; 81025; 80306; 87636; 99285; G0480; 80346